=== PATIENT | female | born 1955 | race Caucasian/White ===

== ENCOUNTER 2019-06-13 01:40 | Day surgery (SDC) | payer MEDICARE, MEDICAID, SELFPAY ==
[2019-06-04 14:27] VITALS: BMI 27.5
[2019-06-13 08:49] VITALS: BP 128/74; PULSE 112; RESP 18; TEMP 36.2; O2SAT 98
--- NOTE | 2019-06-13 08:54 | WPDANESEPPF ---
Anes - Initial Pre Proc Eval Procedure: Operation Date: 06/13/19 10:00 Proposed Procedures p Screening Colonoscopy - Faizan Noel MD Date/Time: 06/13/19 08:54 Surgeon: Faizan Noel MD Pre Op Diagnosis: Fam Hx Colon Ca/ Personal Hx Colon Polyps Patient Data Age: 63 Gender: F Height: 1.52 m Weight: 61.6 kg Last Vital Signs Temp 36.2 C L 06/13/19 08:49 Pulse 112 H 06/13/19 08:49 Resp 18 06/13/19 08:49 BP 128/74 06/13/19 08:49 Pulse Ox 98 06/13/19 08:49 Allergies Allergy/AdvReac Type Severity Reaction Status Date / Time morphine Allergy Intermediate Swelling Verified 06/13/19 08:48 Home Medications Medication Instructions Recorded Confirmed Type ezetimibe 10 mg tablet 10 mg PO DAILY #60 tablet 03/19/19 06/04/19 Rx levothyroxine 100 mcg tablet 100 mcg PO DAILY #90 tablet 04/14/19 06/04/19 Rx cyclobenzaprine 10 mg tablet 10 mg PO TID PRN #30 tablet 05/26/19 06/04/19 Rx umeclidinium-vilanterol [Anoro 1 ea INHALATION DAILY 06/04/19 06/04/19 History Ellipta] Patient hx anesthesia problems: none Family hx anesthesia problems: none PMFSH Social History Social History Smoking packs per day: 2 Smoking cigarettes per day: 40.0 Smoking status: Current every day smoker Second hand tobacco smoke exposure: No Alcohol intake: never Anes - Eval Final PreProcedure Day of Procedure 06/13/19 08:54 Patient weight: overweight Heart: regular rate and rhythm Lungs: clear to auscultation and normal air movement Airway: Mallampati scale class II Neurological: alert and oriented Last oral intake: >/= 8 hours ASA classification: III Emergent: no Anesthetic plan: proceed Anesthesia type and monitoring: general GIVS Informed Consent: The patient's anesthetic plan and its attendant risks and benefits were discussed with the patient/family/POA. Questions were solicited and answers provided to the satisfaction of the patient/family/POA.
--- NOTE | 2019-06-13 08:58 | WPDANESEPPF ---
Anes - Initial Pre Proc Eval Procedure: Operation Date: 06/13/19 10:00 Proposed Procedures p Screening Colonoscopy - Faizan Noel MD Date/Time: 06/13/19 08:58 Surgeon: Faizan Noel MD Pre Op Diagnosis: Fam Hx Colon Ca/ Personal Hx Colon Polyps Patient Data Age: 63 Gender: F Height: 1.52 m Weight: 61.6 kg Last Vital Signs Temp 36.2 C L 06/13/19 08:49 Pulse 112 H 06/13/19 08:49 Resp 18 06/13/19 08:49 BP 128/74 06/13/19 08:49 Pulse Ox 98 06/13/19 08:49 Allergies Allergy/AdvReac Type Severity Reaction Status Date / Time morphine Allergy Intermediate Swelling Verified 06/13/19 08:48 Home Medications Medication Instructions Recorded Confirmed Type ezetimibe 10 mg tablet 10 mg PO DAILY #60 tablet 03/19/19 06/04/19 Rx levothyroxine 100 mcg tablet 100 mcg PO DAILY #90 tablet 04/14/19 06/04/19 Rx cyclobenzaprine 10 mg tablet 10 mg PO TID PRN #30 tablet 05/26/19 06/04/19 Rx umeclidinium-vilanterol [Anoro 1 ea INHALATION DAILY 06/04/19 06/04/19 History Ellipta] Patient hx anesthesia problems: none Family hx anesthesia problems: none PMFSH Past Medical History Medical History (Updated 06/13/19 @ 08:58 by Boston Ramos MD) Cervical disc disorder Compression fracture of T3 vertebra COPD (chronic obstructive pulmonary disease) Hyperlipidemia Hypothyroidism Thyroid cancer Tobacco abuse Torticollis, acute Surgical History Surgical History History of cholecystectomy History of hysterectomy History of thyroidectomy Social History Social History Smoking packs per day: 2 Smoking cigarettes per day: 40.0 Smoking status: Current every day smoker Second hand tobacco smoke exposure: No Alcohol intake: never Anes - Eval Final PreProcedure Day of Procedure 06/13/19 08:58 Patient weight: overweight Heart: regular rate and rhythm Lungs: clear to auscultation and normal air movement Airway: Mallampati scale class II Neurological: alert and oriented Last oral intake: >/= 8 hours ASA classification: III Emergent: no Anesthetic plan: proceed Anesthesia type and monitoring: general GIVS Informed Consent: The patient's anesthetic plan and its attendant risks and benefits were discussed with the patient/family/POA. Questions were solicited and answers provided to the satisfaction of the patient/family/POA.
[2019-06-13] MEDS: LACTATED RINGERS 1,000 ML 150 ML IV CONT (09:00)
--- NOTE | 2019-06-13 09:47 | P.HP_ITS ---
History of Present Illness History of Present Illness Consent: Risks, benefits, and alternatives have been discussed and questions answered. Patient agrees to proceed with procedure. Chief complaint: Fam Hx Colon Ca/ Personal Hx Colon Polyps Narrative: Yamini Lerner is a 63 year old female for colon cancer screening. She had adenomatous polyps removed 5 years ago [facility] Past Medical History Medical History Cervical disc disorder Compression fracture of T3 vertebra COPD (chronic obstructive pulmonary disease) Hyperlipidemia Hypothyroidism Thyroid cancer Tobacco abuse Torticollis, acute Surgical History Surgical History History of cholecystectomy History of hysterectomy History of thyroidectomy Family History Family History Grandparent Family history of malignant neoplasm of breast Family history of coronary artery disease Other Carcinoma of colon Cerebrovascular accident Diabetes mellitus Family history of cardiovascular disease Family history of malignant melanoma Family history of malignant neoplasm Hypertension Social History Social History Smoking packs per day: 2 Smoking cigarettes per day: 40.0 Smoking status: Current every day smoker Second hand tobacco smoke exposure: No Alcohol intake: never Meds Home Medications and Allergies Home Medications Medication Instructions Recorded Confirmed Type ezetimibe 10 mg tablet 10 mg PO DAILY #60 tablet 03/19/19 06/04/19 Rx levothyroxine 100 mcg tablet 100 mcg PO DAILY #90 tablet 04/14/19 06/04/19 Rx cyclobenzaprine 10 mg tablet 10 mg PO TID PRN #30 tablet 05/26/19 06/04/19 Rx umeclidinium-vilanterol [Anoro 1 ea INHALATION DAILY 06/04/19 06/04/19 History Ellipta] meloxicam 15 mg tablet 15 mg PO DAILY #30 tablet 06/13/19 Rx Allergies Allergy/AdvReac Type Severity Reaction Status Date / Time morphine Allergy Intermediate Swelling Verified 06/13/19 08:48 Vital Signs Vital Signs - 24 hr 06/13/19 08:49 Temperature 36.2 C L Pulse Rate 112 H Respiratory Rate 18 Blood Pressure 128/74 Pulse Oximetry 98 Exam Resp: Auscultation: clear to auscultation bilaterally Cardio: Rate: regular rate Rhythm: regular rhythm GI: GI Palp: Yes Soft to palpation and No Tenderness to palpation present (GI) Assessment and Plan Assessment and plan (1) Personal history of colonic polyps: Code(s): Z86.010 - Personal history of colonic polyps Status: Acute Assessment and Plan: Colonoscopy with possible biopsy or polypectomy or cautery or injection of substances.
[2019-06-13 10:15] VITALS: BP 87/54; PULSE 103; RESP 20; O2SAT 95
[2019-06-13 10:25] VITALS: BP 97/64; PULSE 100; RESP 20; O2SAT 96
[2019-06-13 10:35] VITALS: BP 103/51; PULSE 101; RESP 20; O2SAT 96
== END 2019-06-13 10:53 | disposition home or self-care (01) ==
PROVIDERS: PCP Family Medicine; Visit Provider Internal Medicine Gastroenterology
PROC: 0DJD8ZZ Inspection of Lower Intestinal Tract, Via Natural or Artificial Opening Endoscopic (ICD-10-PCS; CPT 45378; principal; 2019-06-13 10:00)
DX: Z12.11 Encounter for screening for malignant neoplasm of colon (principal); K63.5 Polyp of colon; K57.30 Diverticulosis of large intestine without perforation or abscess without bleeding; Z80.0 Family history of malignant neoplasm of digestive organs; F17.210 Nicotine dependence, cigarettes, uncomplicated
CPT/HCPCS: 45385; 88305; J2001; J2704; J7120

== ENCOUNTER 2019-11-26 12:43 | Outpatient (CLI) | payer MEDICARE, MEDICAID, SELFPAY ==
--- NOTE | ~2019-11-26 | CT_ITS ---
EXAMINATION: CT lung screening DATE: 11/26/2019 13:24 INDICATION: History of tobacco use. Tobacco dependence. TECHNIQUE: Computed tomography (CT) of the chest was performed without intravenous contrast. The dose -length product was 72.39 mGy-cm. Automated exposure control and iterative reconstruction technique w ere employed. COMPARISON: CT dated 08/02/2018 FINDINGS: Moderate emphysema. Heart size normal. No thoracic lymphadenopathy. No significant pleural or pericardial effusion. The upper abdomen is unremarkable. There are cholecystectomy clips. Stable 2 mm right lower lobe nodule. 3 mm left upper lobe nodule, image 27., Unchanged. There are a few addit ional small 2 mm upper lobe nodules. These are not significantly changed. Stable mild superior end pl ate compression deformity of T11. No acute osseous abnormality. IMPRESSION: 1. Lung-RADS category 2: Benign appearance or behavior. Continue annual screening with noncontrast lo w-dose chest CT in 12 months. Reviewed, dictated and finalized at location B. IMPRESSION: 1. Lung-RADS category 2: Benign appearance or behavior. Continue annual screeni ng with noncontrast low-dose chest CT in 12 months.
== END 2019-11-26 12:44 | disposition home or self-care (01) ==
PROVIDERS: PCP Family Medicine; Visit Provider Nurse Practitioner Family
DX: Z12.2 Encounter for screening for malignant neoplasm of respiratory organs (principal); Z87.891 Personal history of nicotine dependence
CPT/HCPCS: G0297

== ENCOUNTER 2020-02-05 06:36 | Outpatient (CLI) | payer MEDICARE, MEDICAID, SELFPAY ==
--- NOTE | ~2020-02-05 | MR_ITS ---
EXAMINATION: MR hand LT wo con DATE: 02/05/2020 08:23 INDICATION: Tendon rupture of left index finger. TECHNIQUE: Magnetic resonance imaging (MRI) of the left hand was performed without intravenous contra st. COMPARISON: None FINDINGS: Bone alignment is normal. No fracture. There is mild osteoarthritis of first and second met acarpophalangeal joints, third proximal interphalangeal joint, and second-fifth distal interphalangea l joints. There is moderate tendinopathy of flexor digitorum profundus and mild tendinopathy of flexo r digitorum superficialis of the second digit. No bowstringing to suggest sherry injury. The extensor tendons are normal. IMPRESSION: 1. Moderate tendinopathy of flexor digitorum profundus and mild tendinopathy of flexor digitorum supe rficialis of the second digit. Reviewed, dictated and finalized at location A. IMPRESSION: 1. Moderate tendinopathy of flexor digitorum profundus and mild tendinopathy of flexor digitorum superficialis of the second digit.
--- NOTE | ~2020-02-05 | MR_ITS ---
EXAMINATION: MR wrist LT wo con DATE: 02/05/2020 08:24 INDICATION: Tendon rupture of left index finger. TECHNIQUE: Magnetic resonance imaging (MRI) of the wrist was performed without intravenous contrast. Sequences performed include coronal T1-weighted FSE, coronal PD-weighted FS FSE, axial PD-weighted FS FSE, axial PD-weighted FSE, sagittal PD-weighted FSE, and sagittal PD-weighted FS FSE. COMPARISON: None FINDINGS: Intrinsic ligaments: The scapholunate and lunotriquetral ligaments are intact. Triangular fibrocartilage complex (TFCC): The triangular fibrocartilage is intact. Extensor wrist: The extensor tendons are normal. Flexor wrist: The flexor tendons are normal. Median nerve is normal. Guyon's canal: Ulnar nerve is normal. Bones/other: Bone alignment is normal. No fracture. There is mild osteoarthritis of distal radioulnar joint and ra dioscaphoid joint. There is patchy bone marrow edema in lunate, worst near the proximal articular anna face. There is mild osteoarthritis of triscaphe joint and moderate osteoarthritis of first carpometac arpal joint. IMPRESSION: 1. Patchy bone marrow edema in lunate with a proximal predominance, which may be secondary to osteone crosis, radiolunate osteoarthritis, or ulnolunate impaction syndrome. 2. Polyarticular osteoarthritis. Reviewed, dictated and finalized at location A. IMPRESSION: 1. Patchy bone marrow edema in lunate with a proximal predominance, which may b e secondary to osteonecrosis, radiolunate osteoarthritis, or ulnolunate impacti on syndrome. 2. Polyarticular osteoarthritis.
== END 2020-02-05 06:37 | disposition home or self-care (01) ==
PROVIDERS: PCP Family Medicine; Visit Provider Plastic Surgery
DX: S66.111A Strain of flexor muscle, fascia and tendon of left index finger at wrist and hand level, initial encounter (principal)
CPT/HCPCS: 73218; 73221

== ENCOUNTER 2020-03-26 14:45 | Outpatient (CLI) | payer MEDICARE, MEDICAID, SELFPAY ==
--- NOTE | ~2020-03-26 | MR_ITS ---
EXAMINATION: MR lumbar spine wo con DATE: 03/26/2020 16:01 INDICATION: Lumbar radiculopathy TECHNIQUE: Magnetic resonance imaging (MRI) of the lumbar spine was performed without intravenous con trast. Sequences included sagittal T2-weighted FSE, sagittal T2-weighted FS FSE, sagittal T1-weighted FSE, and axial T2-weighted FSE. COMPARISON: 02/07/2019 FINDINGS: Unchanged 3 mm retrolisthesis L4 on L5. Chronic mild anterior wedging at T12. Remaining vertebral bod y heights are normal. Interval progression of now severe disc height loss with similarly worsening fi brovascular degenerative endplate changes at L4-L5. Marrow signal is otherwise normal throughout. Unc hanged moderate disc height loss at L2-L3. Mild disc height loss at L3-L4. The conus medullaris termi nates at L1-L2. There is normal signal in the caudal spinal cord. Postoperative changes posterior to the lower lumbar spine with metallic magnetic field artifact corresponding to an interspinous process spacer device between L4 and L5 with partial resection of the inferior margin of the L4 spinous proc ess seen on radiograph dated 05/23/2019. 1.3 cm T2 hyperintense right renal cyst. The following disc levels are specifically discussed: T12-L1: The disc does not extend beyond the endplate margin. There is mild left and minimal right fac et joint osteoarthritis. There is no neural foraminal stenosis. There is no central canal stenosis. L1-L2: The disc does not extend beyond the endplate margin. There is mild bilateral facet joint osteo arthritis. There is no neural foraminal stenosis. There is no central canal stenosis. L2-L3: Disc is bulging with superimposed annular fissure and unchanged small left central disc extrus ion with disc material extending up to 10 mm cephalad to the level of the inferior endplate of L2. Th ere is hypertrophy of the ligamentum flavum. There is mild bilateral facet joint osteoarthritis. Ther e is mild bilateral neural foraminal stenosis. There is mild central canal stenosis. L3-L4: Disc is bulging. There is hypertrophy of the ligamentum flavum. There is severe right and mil d left facet joint osteoarthritis. There is mild bilateral neural foraminal stenosis. There is modera te central canal stenosis. L4-L5: Annular fissure and broad-based disc extrusion extending from foraminal zone to foraminal zone with disc material extending up to 7 mm inferior to the level of the L5 superior endplate margin. Th ere is moderate bilateral facet joint osteoarthritis. Progression of now moderate to severe bilateral neural foraminal stenosis. There appears to been posterior decompression with at least partial resec tion of the ligamentum flavum. There is mild central canal stenosis. L5-S1: Disc is mildly bulging. There is severe bilateral facet joint osteoarthritis. There is mild le ft and moderate right neural foraminal stenosis. There is mild central canal stenosis. IMPRESSION: 1. Continued progression of now severe spondylosis at L4-L5 with mild to moderate spondylosis in the remainder of the lumbar spine. 2. Likely posterior decompression at L4-L5 with interspinous process spacer device. Reviewed, dictated and finalized at location H. UET FLOOR LAYER IMPRESSION: 1. Continued progression of now severe spondylosis at L4-L5 with mild to modera te spondylosis in the remainder of the lumbar spine. 2. Likely posterior decompression at L4-L5 with interspinous process spacer dev ice.
== END 2020-03-26 14:46 | disposition home or self-care (01) ==
LOC: ANHIMG 14:50
PROVIDERS: PCP Family Medicine
DX: M47.26 Other spondylosis with radiculopathy, lumbar region (principal)
CPT/HCPCS: 72148

== ENCOUNTER 2020-07-23 11:44 | Outpatient (CLI) | payer MEDICARE, MEDICAID, SELFPAY | END 2020-07-23 11:45 | disposition home or self-care (01) | LOC: ANHCOVIDVC 11:45 | PROVIDERS: PCP Family Medicine | DX: Z23 Encounter for immunization (principal) | CPT/HCPCS: 0001A; 91300 ==

== ENCOUNTER 2020-08-13 11:40 | Outpatient (CLI) | payer MEDICARE, MEDICAID, SELFPAY | END 2020-08-13 11:41 | disposition home or self-care (01) | LOC: ANHCOVIDVC 11:40 | PROVIDERS: PCP Family Medicine | DX: Z23 Encounter for immunization (principal) | CPT/HCPCS: 0002A; 91300 ==

== ENCOUNTER 2020-11-22 13:52 | Outpatient (CLI) | payer MEDICARE, MEDICAID, SELFPAY ==
--- NOTE | ~2020-11-22 | MM_ITS ---
EXAMINATION: MM screening [facility] BI w tiana HISTORY: Screening mammogram TECHNIQUE: Craniocaudal and mediolateral oblique 3-D tomosynthesis images were obtained and synthetic 2-D images were generated. CAD analysis was submitted and interpreted. COMPARISON: 06/28/2018, 03/09/2017, 06/08/2014 BREAST PARENCHYMAL COMPOSITION: The breasts are almost entirely fatty. FINDINGS: There is no evidence of suspicious mass, calcification, or architectural distortion to sugg est malignancy in either breast. There has been no suspicious interval change. IMPRESSION: 1. No mammographic evidence of malignancy. 2. Recommend routine screening mammography in one year. BI-RADS Category 1: Negative Reviewed, dictated and finalized at location A.
--- NOTE | ~2020-11-22 | DEXA_ITS ---
Bone Density Report Name: Yamini Lerner Age: 65 Sex: Female Ethnicity: White Date of : 1955 Indication: osteopenia; cancer; asthma or emphysema; hysterectomy; postmenopausal Referring Provider: Marce Gupta Study: Bone densitometry was performed. Exam Date: November 22, 2020 Accession number: [id number] Bone Density: Region BMD T-score Z-score Classification AP Spine (L1, L2, L3) 0.741 -2.5 -0.8 Osteoporosis Femoral Neck (Left) 0.572 -2.5 -1.0 Osteoporosis Total Hip (Left) 0.648 -2.4 -1.2 Osteopenia Total Hip Bilateral Avg 0.644 -2.5 -1.3 Osteoporosis Femoral Neck (Right) 0.586 -2.4 -0.9 Osteopenia Total Hip (Right) 0.638 -2.5 -1.3 Osteoporosis World Health Organization criteria for BMD impression classify patients as: Normal (T-score at or above -1.0), Osteopenia (T-score between -1.0 and -2.5), or Osteoporosis (T-score at or below -2.5). 10-year Fracture Risk: FRAX not reported because: Some T-score for Spine Total or Hip Total or Femoral Neck at or below -2.5 Previous Exams: Region Exam Age BMD T-score BMD Change BMD Change Date g/cm2 vs Baseline vs Previous AP Spine(L1, L2, L3) 11/22/2020 65 0.741 -2.5 -0.064(-7.9%)* -0.064(-7.9%)* 06/08/2014 58 0.805 -1.9 Total Hip(Left) 11/22/2020 65 0.648 -2.4 -0.057(-8.1%)* -0.057(-8.1%)* 06/08/2014 58 0.704 -1.9 Total Hip(Right) 11/22/2020 65 0.638 -2.5 -0.105(-14.2%) -0.105(-14.2%) 06/08/2014 58 0.744 -1.6 *Denotes significance at 95% confidence level, LSC for AP Spine = 0.022 g/cm2, LSC for Total Hip = 0.027 g/cm2 Clinical Information Provided by Patient: Smokes Has the following medical conditions: Asthma or Emphysema, Cancer, Hysterectomy Patient maximum height was 60 Menopause Age: 37 Does not regularly consume dairy products Drinks caffeinated beverages Onset of menses at age 14 Number of children 1 Impression: The patient has osteoporosis, based on the Total Spine T-score. The patient has risk factors, including: smoking. The BMD for the AP Spine(L1, L2, L3) decreased, changing by -7.9% since the last DXA exam. The BMD for the Total Hip(Left) decreased, changing by -8.1% since the last DXA exam. The BMD for the Total Hip(Right) decreased, changing by -14.2% since the last DXA exam. Discussion: INCREASED RISK OF FRACTURE. BONE DENSITY IS UNDESIRABLY LOW AT ONE OR MORE SKELETAL SITES, CONSISTENT WITH POSTMENOPAUSAL OSTEOPOROSIS. This patient's lowest T-score meets the World H
== END 2020-11-22 13:53 | disposition home or self-care (01) ==
LOC: ANHIMG 13:56
PROVIDERS: PCP Family Medicine; Visit Provider Physician Assistant Medical
DX: Z12.31 Encounter for screening mammogram for malignant neoplasm of breast (principal); M81.0 Age-related osteoporosis without current pathological fracture; M85.852 Other specified disorders of bone density and structure, left thigh
CPT/HCPCS: 77063; 77067; 77080

== ENCOUNTER 2020-11-24 10:06 | Outpatient (CLI) | payer MEDICARE, MEDICAID, SELFPAY ==
--- NOTE | 2020-11-24 12:00 | NEURO_ITS ---
Impression: # Complains of numbness of hands. Status post C-spine surgery. # No Carpal Tunnel Syndrome. # Left ulnar neuropathy across the elbow. # Needle/EMG exam neurogenic in left 1st DI only. Nerve Conduction Studies Anti Sensory Summary Table Stim Site NR Peak (ms) P-T Amp (?V) Site1 Site2 Delta-P (ms) Dist (cm) Jude (m/s) Left Median Anti Sensory (2-3nd Digit) Wrist 3.2 72.9 Wrist 2-3nd Digit 3.2 14.0 44 Wrist 3.2 63.4 Wrist 2-3nd Digit 3.2 14.0 44 Left Radial Anti Sensory (Base 1st Digit) Wrist 1.6 28.0 Wrist Base 1st Digit 1.6 0.0 Left Ulnar Anti Sensory (5th Digit) Wrist 2.4 15.9 Wrist 5th Digit 2.4 14.0 58 Motor Summary Table Stim Site NR Onset (ms) O-P Amp (mV) Site1 Site2 Delta-0 (ms) Dist (cm) Jude (m/s) Left Median Motor (Abd Poll Brev) Wrist 4.1 2.8 Elbow Wrist 4.0 25.0 63 Elbow 8.1 2.9 Left Ulnar Motor (Abd Dig Minimi) Wrist 3.4 2.1 A Elbow Wrist 5.4 27.0 50 A Elbow 8.8 1.7 B Elbow Wrist 3.3 21.0 64 B Elbow 6.7 1.2 F Wave Studies NR F-Lat (ms) L-R F-Lat (ms) Left Median (Mrkrs) (Abd Poll Brev) 27.89 Left Ulnar (Mrkrs) (Abd Dig Min) 29.61 EMG Side Muscle Nerve Root Ins Act Fibs Amp Dur Recrt Comment Left 1stDorInt Ulnar C8-T1 Nml Nml Incr >12ms Reduced Left Ext Indicis Radial (Post Int) C7-8 Nml Nml Nml Nml Nml Left Ext Digitorum Radial (Post Int) C7-8 Nml Nml Nml Nml Nml Left BrachioRad Radial C5-6 Nml Nml Nml Nml Nml Left PronatorTeres Median C6-7 Nml Nml Nml Nml Nml Left Abd Poll Brev Median C8-T1 Nml Nml Nml Nml Nml Left Biceps Musculocut C5-6 Nml Nml Nml Nml Nml Left Triceps Radial C6-7-8 Nml Nml Nml Nml Nml Left Deltoid Axillary C5-6 Nml Nml Nml Nml Nml MTDD
== END 2020-11-24 10:07 | disposition home or self-care (01) ==
PROVIDERS: PCP Family Medicine; Visit Provider Plastic Surgery
DX: M62.542 Muscle wasting and atrophy, not elsewhere classified, left hand (principal); G56.22 Lesion of ulnar nerve, left upper limb
CPT/HCPCS: 95886; 95909

== ENCOUNTER 2021-04-29 09:45 | Outpatient (CLI) | payer MEDICARE, MEDICAID, SELFPAY ==
--- NOTE | ~2021-04-29 | CT_ITS ---
EXAMINATION: CT lung screening DATE: 04/29/2021 10:00 INDICATION: Personal history of nicotine dependence, current smoker with 50 pack year history TECHNIQUE: Computed tomography (CT) of the chest was performed without intravenous contrast. The dose -length product (DLP) was 81.58 mGy-cm. Automated exposure control and iterative reconstruction techn [employer] were employed. COMPARISON: 11/26/2019 FINDINGS: There is a stable 2 mm nodule of the right lower lobe. A stable 3 mm nodule is present in t he left upper lobe. There is mild emphysema. The lungs are free of acute opacities. There is no pleur al effusion or pneumothorax. There is mild atelectasis of the lingula. No pathologically enlarged tho racic lymph nodes are identified. The heart size is normal. The gallbladder is surgically absent. The re is severe mid thoracic spondylosis. IMPRESSION: 1. Lung-RADS category 2: Benign appearance or behavior. Continue annual screening with noncontrast lo w-dose chest CT in 12 months. Reviewed, dictated and finalized at location A. SUPERVISOR IMPRESSION: 1. Lung-RADS category 2: Benign appearance or behavior. Continue annual screeni ng with noncontrast low-dose chest CT in 12 months.
== END 2021-04-29 09:46 | disposition home or self-care (01) ==
LOC: ANHIMG 09:48
PROVIDERS: PCP Family Medicine; Visit Provider Nurse Practitioner Family
DX: Z87.891 Personal history of nicotine dependence (principal)
CPT/HCPCS: 71271

== ENCOUNTER 2021-05-01 07:55 | Emergency (ER) | payer MEDICARE, MEDICAID, SELFPAY ==
--- NOTE | ~2021-05-01 | XR_ITS ---
EXAMINATION: XR elbow LT min 3V DATE: 05/01/2021 09:53 INDICATION: Left elbow injury. TECHNIQUE: 4 views of left elbow were obtained. COMPARISON: None. FINDINGS: There is a displaced comminuted fracture of radial head and neck. One of the articular surf lashonda fracture fragments is rotated 180 degrees. There is mild elbow joint osteoarthritis. There is an elbow joint effusion. IMPRESSION: 1. Displaced comminuted fracture involving radial head and neck. 2. Mild elbow joint osteoarthritis. 3. Elbow joint effusion. Reviewed, dictated and finalized at location A. ISITIONS LIBRARIAN
--- NOTE | ~2021-05-01 | CT_ITS ---
EXAMINATION: CT elbow LT wo con DATE: 05/01/2021 11:19 INDICATION: Left elbow pain. Fracture. TECHNIQUE: Computed tomography (CT) of the left elbow was performed without intravenous contrast. Aut omated exposure control and iterative reconstruction technique were employed. The dose-length product was 356.87 mGy-cm. COMPARISON: Left elbow radiographs 05/01/2021 FINDINGS: Bone alignment is normal. There is a comminuted fracture involving head and neck of proxima l radius. The fracture fragments involving the articular surface are displaced and rotated. There is mild osteoarthritis of ulnohumeral joint. There is an elbow joint effusion. IMPRESSION: 1. Displaced comminuted fracture involving radial head and neck. 2. Mild ulnohumeral joint osteoarthritis. 3. Elbow joint effusion. Reviewed, dictated and finalized at location A. NHOUSE TECHNICIAN
[2021-05-01 08:20] VITALS: BP 137/84; PULSE 88; RESP 16; O2SAT 95
--- NOTE | 2021-05-01 10:03 | ED.UPPEXIN ---
HPI - Extremity Injury (Upper) General Chief Complaint: Extremity Injury, Upper Stated Complaint: fall with arm injury Time Seen by Provider: 05/01/21 08:03 Source: patient, family and RN notes reviewed Mode of arrival: ambulatory Limitations: no limitations History of Present Illness HPI narrative: Patient tripped while trying to put her pajamas on last night, positive alcohol, fell landed on the left elbow. Patient denies other injuries. Related Data Home Medications Medication Instructions Recorded Confirmed calcium [id number]-steelscope operator-arnu 1 tablet PO DAILY 01/03/21 02/28/21 [Calcium Citrate Plus] ibuprofen 200 mg PO Q6H 01/03/21 02/28/21 umeclidinium-vilanterol [Anoro 1 inh INHALATION DAILY 01/03/21 02/28/21 Ellipta] Allergies Allergy/AdvReac Type Severity Reaction Status Date / Time morphine Allergy Intermediate Swelling Verified 05/01/21 08:22 Review of Systems Review of Systems: CONSTITUTIONAL: Denies fever, chills, or sweats. EYES: Denies visual changes, redness, or discharge. ENT: Denies rhinorrhea, congestion, sore throat, or otalgia. CARDIOVASCULAR: Denies chest pain, palpitations, or edema. RESPIRATORY: Denies cough or dyspnea. GASTROINTESTINAL: Denies abdominal pain, nausea, vomiting, or diarrhea. GENITOURINARY: Denies dysuria or hematuria. SKIN: Denies rash or itching. MUSCULOSKELETAL: Denies back pain, joint pain, or myalgia. NEUROLOGIC: Denies headache, numbness, or weakness. PSYCHIATRIC: Denies anxiety or depression. [facility] Past Medical History Medical History BMI 26.0-26.9,adult BMI 27.0-27.9,adult Cervical disc disorder Compression fracture of T3 vertebra COPD (chronic obstructive pulmonary disease) Hyperlipidemia Hypothyroidism Thyroid cancer Tobacco abuse Torticollis, acute Surgical History Surgical History History of cholecystectomy History of hysterectomy History of thyroidectomy Family History Family History Grandparent Family history of malignant neoplasm of breast Family history of coronary artery disease Other Carcinoma of colon Cerebrovascular accident Diabetes mellitus Family history of cardiovascular disease Family history of malignant melanoma Family history of malignant neoplasm Hypertension Social History Social History Smoking packs per day: 1 Smoking cigarettes per day: 20.0 Years smoked: 50 Smoking pack-years: 50.00 Smoking status: Current every day smoker Tobacco type: cigarettes Second hand tobacco smoke exposure: No Alcohol intake: never Substance use: never Substance use type: does not use Spiritual care concerns: No Exam Narrative: General appearance: Well-developed, well-nourished Skin: Normal color Head: Normocephalic, nontraumatic Eyes: Clear conjunctiva ENT: Oropharynx normal, ears normal, nose normal Neck: Supple, nontender Chest and respiratory: Airway patent, no respiratory distress, no accessory muscle use Heart: Regular rate/rhythm Abdomen: Soft, nontender, no organomegaly, quiet bowel sounds Vascular: Normal peripheral pulses, normal capillary refill. Musculoskeletal: Left elbow showed diffuse swelling, diffuse tenderness, severe limited range of motion. Neurologic: Alert and oriented ?3, BANKING REPRESENTATIVE is normal as tested, no gross motor deficit Stable Course Course Emergency Course: Stable Consultations Consultation #1: DR WESTBROOK. Transfer patient to [facility] Date: 05/01/21 Time: 10:46 Consultation #2: DR BLOCK.
[2021-05-01] MEDS: IBUPROFEN 600 MG TABLET PO (10:26)
[2021-05-01] MEDS: HYDROcodone/acetaminophen (*CRX) 5-325 MG TABLET 1 TAB PO (10:26)
[2021-05-01 10:44] VITALS: BP 150/90; PULSE 90; RESP 16; O2SAT 96
[2021-05-01 11:36] VITALS: BP 126/78; PULSE 83; RESP 18; TEMP 36.9; O2SAT 93
== END 2021-05-01 12:15 | disposition home or self-care (01) ==
PROVIDERS: PCP Family Medicine
DX: S42.402A Unspecified fracture of lower end of left humerus, initial encounter for closed fracture (principal); J44.9 Chronic obstructive pulmonary disease, unspecified; E78.5 Hyperlipidemia, unspecified; E89.0 Postprocedural hypothyroidism; F17.210 Nicotine dependence, cigarettes, uncomplicated; W01.0XXA Fall on same level from slipping, tripping and stumbling without subsequent striking against object, initial encounter
CPT/HCPCS: 29105; 73080; 73200; 99284; A4565; A9270

== ENCOUNTER 2021-08-11 09:16 | Outpatient (CLI) | payer MEDICARE, MEDICAID, SELFPAY ==
--- NOTE | 2021-08-11 17:45 | WPDSIXMINUTE ---
Six Minute Walk Procedure Procedure Performed Pulmonary Stress Test (6 min walk) Six Minute Walk This is a 6 minute walk test. The test was performed and interpreted in accordance with the 2014 ERS/ATS task force guidelines. Findings: The patient's resting room air oxygen saturation measured by pulse oximetry was 96% and heart rate was 85 bpm. Patient ambulated for 457 meters and oxygen saturation remained 92 to 96%. Heart rate at the end of the study was 110 bpm. The patient did not qualify for supplemental oxygen at rest or with ambulation. There are no prior studies for comparison.
--- NOTE | 2021-08-11 17:46 | P.PCNPFT_ITS ---
PFT Procedure Performed PFT Procedure Performed Spirometry with Pre/Post Bronchodilator Plethysmography (Lung Vol) Diffusing Cap (DLCO) Flow Vol Loop PFT Interpretation This is a pulmonary function test with pre and post-bronchodilator spirometry, plethysmography and diffusing capacity. The test was performed and results interpreted in accordance with the 2019 and 2005 ATS/ERS Task Force guidelines respectively using the Global Lung Function Initiative-2012 reference equations. Patient demonstrated good effort and cooperation. Reproducibility criteria were met. The quality of the pre bronchodilator spirometry maneuver was Grade B and post bronchodilator spirometry maneuver was Grade B. Findings: Spirometry: There is decreased maximal expiratory airflow at all lung volumes with concave expiratory flow tracing. The contour the inspiratory flow tracing is normal. The pre bronchodilator FVC is 2.62 L, 100% predicted. The pre bronchodilator FEV1 is 1.41 L, 68% predicted. The pre bronchodilator FEV1: FVC ratio is 54%. The post bronchodilator FVC is 2.60 L, representing 1% decrease. The post bronchodilator FEV1 is 1.39 L, representing 1% decrease. The post bronchodilator FEV1: FVC ratio is 54%. Plethysmography: The total lung capacity is 4.54 L, 103% predicted. The functional residual capacity is 2.54 L, 102% predicted. The residual volume is 1.67 L, 90% predicted. Diffusing capacity: The diffusion capacity unadjusted for hemoglobin and carboxyhemoglobin is 13.1, 67% predicted. The diffusing capacity adjusted for alveolar volume is 3.36, 74% predicted. In comparison to previous pulmonary function test performed on 11/08/2016 the post bronchodilator FVC is unchanged from 2.76 L to 2.60 L. The post bronchodilator FEV1 is unchanged from 1.57 L to 1.39 L. The total lung capacity has decreased from 5.49 L to 4.54 L. The functional residual capacity is decreased from 3.39 L to 2.54 L. The residual volume has decreased from 2.94 L to 1.67 L. The diffusing capacity unadjusted for hemoglobin and carboxyhemoglobin is unchanged from 12.3 to 13.1. The diffusing capacity a djusted for alveolar volume is unchanged from 3.66 to 3.36. Impression: There is a moderate obstructive abnormality without significant improvement after inhaling a single dose of albuterol. The lung volumes are normal. The diffusing capacity is normal. When compared to prior pulmonary function test on 11/08/2016 there has been a greater than anticipated time dependent decrease in the total lung capacity, functional residual capacity and residual volume with no change in the FVC, FEV1 or DLCO. Clinical correlation is recommended. There are no prior studies for comparison
== END 2021-08-11 09:17 | disposition home or self-care (01) ==
LOC: ANHPFT 09:18
PROVIDERS: PCP Family Medicine; Visit Provider Nurse Practitioner Family
DX: J44.9 Chronic obstructive pulmonary disease, unspecified (principal); R06.02 Shortness of breath
CPT/HCPCS: 94060; 94618; 94726; 94729

== ENCOUNTER 2022-05-01 08:57 | Outpatient (CLI) | payer MEDICARE, MEDICAID, SELFPAY ==
--- NOTE | ~2022-05-01 | CT_ITS ---
EXAMINATION: CT lung screening DATE: 05/01/2022 09:14 INDICATION: Annual screening TECHNIQUE: Computed tomography (CT) of the chest was performed without intravenous contrast. Addition al 3D reconstructions utilizing coronal maximum intensity projection (MIP) were performed. Automated exposure control and iterative reconstruction technique were employed. The dose-length product was 10 2.49 mGy-cm. COMPARISON: 04/29/2021 FINDINGS: Mild emphysema. Unchanged 3 mm left upper lobe nodule on image 34 and 2 mm right lower lobe nodule on image 103. Interval increase in a small region of atelectasis/scarring at the lingula. No pneumonia, pulmonary edema or pleural effusion. Heart size normal. No pericardial effusion. Minimal atheroscler otic coronary artery calcification. Thoracic aorta is normal in caliber. No pathologically enlarged t horacic lymphadenopathy. Cholecystectomy clips the gallbladder fossa. Visual is upper abdomen is othe rwise unremarkable. C5-C6 disc replacement. Severe spondylosis at T8-T9. There are 11 paired rib-bear ing thoracic segments with chronic mild anterior wedging at T11. IMPRESSION: 1. Lung-RADS category 2: Benign appearance or behavior. Continue annual screening with noncontrast lo w-dose chest CT in 12 months. Reviewed, dictated and finalized at location B. ESSOR OF APOLOGETICS IMPRESSION: 1. Lung-RADS category 2: Benign appearance or behavior. Continue annual screeni ng with noncontrast low-dose chest CT in 12 months.
== END 2022-05-01 08:58 | disposition home or self-care (01) ==
PROVIDERS: PCP Family Medicine; Visit Provider Nurse Practitioner Family
DX: Z12.2 Encounter for screening for malignant neoplasm of respiratory organs (principal); Z87.891 Personal history of nicotine dependence
CPT/HCPCS: 71271

== ENCOUNTER 2022-08-15 08:02 | Outpatient (CLI) | payer MEDICARE, MEDICAID, SELFPAY ==
--- NOTE | ~2022-08-15 | XR_ITS ---
EXAMINATION: XR chest 2V Exam Date/Time: 08/15/2022 8:11 CDT HISTORY: Acute bronchitis x 2 wks,Lt sided spasms, hx of COPD Comparison: 03/08/2018, CT lung screening 05/01/2022. RESULT: Lines, tubes, and devices: Cholecystectomy clips. Lower cervical interbody device. Lungs and pleura: Emphysematous/senescent change. No focal consolidation, effusion, or pneumothorax. Lingular scar. Cardiomediastinal silhouette: Stable. Other: No acute osseous or upper abdominal finding. IMPRESSION: No acute cardiopulmonary process. Reviewed, dictated and finalized at location K.
== END 2022-08-15 08:03 | disposition home or self-care (01) ==
PROVIDERS: PCP Family Medicine; Visit Provider Physician Assistant Medical
DX: J20.9 Acute bronchitis, unspecified (principal)
CPT/HCPCS: 71046

== ENCOUNTER 2022-09-06 16:19 | Outpatient (CLI) | payer MEDICARE, MEDICAID, SELFPAY ==
--- NOTE | ~2022-09-06 | MM_ITS ---
EXAMINATION: MM screening ratna BI w tiana HISTORY: Screening mammogram TECHNIQUE: Craniocaudal and mediolateral oblique 3-D tomosynthesis images were obtained and synthetic 2-D images were generated. CAD analysis was submitted and interpreted. COMPARISON: 11/22/2020, 06/28/2018 and 03/09/2017 bilateral screening mammogram examinations BREAST PARENCHYMAL COMPOSITION: The breasts are almost entirely fatty. FINDINGS: There is no evidence of suspicious mass, calcification, or architectural distortion to sugg est malignancy in either breast. There has been no suspicious interval change. IMPRESSION: 1. No mammographic evidence of malignancy. 2. Recommend routine screening mammography in one year. BI-RADS Category 1: Negative Reviewed, dictated and finalized at location A.
== END 2022-09-06 16:20 | disposition home or self-care (01) ==
LOC: ANHIMG 16:21
PROVIDERS: PCP Family Medicine; Visit Provider Family Medicine
DX: Z12.31 Encounter for screening mammogram for malignant neoplasm of breast (principal)
CPT/HCPCS: 77063; 77067

== ENCOUNTER 2023-07-12 07:15 | Outpatient (CLI) | payer MEDICARE, MEDICAID, SELFPAY ==
--- NOTE | ~2023-07-12 | CT_ITS ---
EXAMINATION:CT lung screening DATE: 07/12/2023 07:30 INDICATION: Personal history of nicotine dependence. TECHNIQUE: Computed tomography (CT) of the chest was performed without intravenous contrast. Automate d exposure control and iterative reconstruction technique were employed. The dose-length product (DLP ) was 99.58 mGy-cm. COMPARISON: Chest CT 05/01/2022 FINDINGS: There is mild emphysema. There is mild scarring at the lung apices. There is mild atelectas is in the lingula. There are two 2 mm nodules in left upper lobe. No pleural effusion. The heart size is normal. There are coronary artery calcifications. No pericardial effusion. There are changes of c holecystectomy. There is severe cervical and thoracic spondylosis. There are changes of disc replacem ent in cervical spine. There is a chronic compression fracture of T12. IMPRESSION: 1. Lung-RADS category 2: Benign appearance or behavior. Continue annual screening with noncontrast lo w-dose chest CT in 12 months. Reviewed, dictated and finalized at location A. LOFT WORKER IMPRESSION: 1. Lung-RADS category 2: Benign appearance or behavior. Continue annual screeni ng with noncontrast low-dose chest CT in 12 months.
== END 2023-07-12 07:16 | disposition home or self-care (01) ==
PROVIDERS: PCP Family Medicine; Visit Provider Nurse Practitioner Family
DX: Z12.2 Encounter for screening for malignant neoplasm of respiratory organs (principal); Z87.891 Personal history of nicotine dependence
CPT/HCPCS: 71271

== ENCOUNTER 2023-08-01 14:55 | Outpatient (CLI) | payer MEDICARE, MEDICAID, SELFPAY ==
--- NOTE | ~2023-08-01 | US_ITS ---
Ultrasound of the neck/thyroid bed CLINICAL HISTORY: Abnormal blood chemistry findings FINDINGS: Patient is status post prior thyroidectomy. No abnormal mass lesion or lymphadenopathy seen in the region scanned/thyroid bed. IMPRESSION: Status post thyroidectomy. No abnormal mass lesion or lymphadenopathy seen. Reviewed, dictated and finalized at [facility].
== END 2023-08-01 14:56 | disposition home or self-care (01) ==
LOC: ANHIMG 14:57
PROVIDERS: PCP Family Medicine; Visit Provider Physician Assistant Medical
DX: C73 Malignant neoplasm of thyroid gland (principal); R79.89 Other specified abnormal findings of blood chemistry
CPT/HCPCS: 76536

== ENCOUNTER 2023-10-12 09:32 | Outpatient (CLI) | payer MEDICARE, MEDICAID, SELFPAY ==
--- NOTE | ~2023-10-12 | MM_ITS ---
EXAMINATION: MM screening ratna BI w tiana HISTORY: Screening TECHNIQUE: Craniocaudal and mediolateral oblique 3-D tomosynthesis images were obtained and synthetic 2-D images were generated. CAD analysis was submitted and interpreted. COMPARISON: Comparison to multiple prior studies sequentially, with oldest reviewed study dated 06/08. BREAST PARENCHYMAL COMPOSITION: There are scattered areas of fibroglandular density. FINDINGS: There is no evidence of suspicious mass, calcification, or architectural distortion to sugg est malignancy in either breast. There has been no suspicious interval change. IMPRESSION: 1. No mammographic evidence of malignancy. 2. Recommend routine screening mammography in one year. BI-RADS Category 1: Negative Reviewed, dictated and finalized at location B.
== END 2023-10-12 09:33 | disposition home or self-care (01) ==
LOC: ANHIMG 09:34
PROVIDERS: PCP Family Medicine; Visit Provider Family Medicine
DX: Z12.31 Encounter for screening mammogram for malignant neoplasm of breast (principal)
CPT/HCPCS: 77063; 77067

== ENCOUNTER 2023-12-18 09:27 | Outpatient (CLI) | payer MEDICARE, MEDICAID, SELFPAY ==
[2023-12-18 09:43] LABS: Basophils Absolute Auto 0.1 K/mm3 (0.0-0.1); Basophils Percent Auto 0.9 % (0.2-1.2); Eosinophils Absolute Auto 0.2 K/mm3 (0-0.3); Eosinophils Percent Auto 2.7 % (0-4.4); Hemoglobin 16.4 g/dL (12.0-15.0); Immature Granulocyte Absolute 0.02 K/mm3 (0.00-0.031); Immature Granulocyte Percent A 0.2 % (0-0.5); Lymphocytes Absolute Auto 2.33 K/mm3 (0.9-3.2); Lymphocytes Percent Auto 27.5 % (18.3-44.2); Mean Corpuscular HGB Conc 34.2 g/dl (32-36); Mean Corpuscular Volume 87.8 fl (80-100); Mean Platelet Volume 10.1 fl (7.4-10.4); Monocytes Absolute Auto 0.7 K/mm3 (0.1-0.6); Monocytes Percent Auto 7.8 % (2.6-8.5); Neutrophils Absolute Auto 5.2 K/mm3 (1.3-6.7); Neutrophils Percent Auto 60.9 % (45.5-73.1); Platelet Count Result 339 k/mm3 (150-375); Red Blood Count 5.47 M/mm3 (4.2-5.4); Red Cell Distribution Width 15.8 % (11.5-14.5); White Blood Count 8.5 K/mm3 (4.5-10.0)
[2023-12-18 09:48] LABS: Blood Urea Nitrogen 11 mg/dL (8-26); Carbon Dioxide 29 mmol/L (22-30); Chloride 99 mmol/L (98-109); Estimated Glomerular Filt Rate > 60; Glucose 111 mg/dL (70-105); Potassium 4.3 mmol/L (3.5-4.9); Sodium 136 mmol/L (138-146)
== END 2023-12-18 09:28 | disposition home or self-care (01) ==
LOC: ANHLAB 09:31
PROVIDERS: PCP Family Medicine; Visit Provider Internal Medicine Hematology & Oncology
DX: D75.1 Secondary polycythemia (principal)
CPT/HCPCS: 36415; 80047; 85025

== ENCOUNTER 2024-03-26 10:46 | Outpatient (CLI) | payer MEDICARE, MEDICAID, SELFPAY ==
--- NOTE | ~2024-03-26 | XR_ITS ---
3 VIEWS LUMBAR SPINE Ordering provider: Marce Gupta, [facility] History: . B/L LOW BACK PAIN NO INJURY . Comparison: None. FINDINGS: VERTEBRAL BODIES: No visible fracture or subluxation. Degenerative changes of the spine. Postoperative changes at the levels of L3, L4 and L5. DISK SPACES: Narrowing of the disc L2-L3 and L4-L5. SOFT TISSUES: Normal. IMPRESSION: No acute osseous abnormality lumbar spine. Multilevel degenerative disc disease. Reviewed, dictated and finalized at location A. NEER BYPRODUCT
== END 2024-03-26 10:47 | disposition home or self-care (01) ==
PROVIDERS: PCP Family Medicine; Visit Provider Physician Assistant Medical
DX: M54.50 Low back pain, unspecified (principal); G89.29 Other chronic pain; R29.898 Other symptoms and signs involving the musculoskeletal system; M51.369 Other intervertebral disc degeneration, lumbar region without mention of lumbar back pain or lower extremity pain
CPT/HCPCS: 72100

== ENCOUNTER 2024-04-16 14:07 | Outpatient (RCR) | payer MEDICARE, MEDICAID, SELFPAY ==
--- NOTE | 2024-04-16 15:28 | OPREHPOC ---
Outpatient Therapy Plan of Care This is a Multidisciplinary Plan of Care that may contain components documented by all disciplines (PT, OT, and ST.) PT Problem 1 PT Problem #1 Knowledge Deficit PT Goal 1 Goal / Goal Update *indep with HEP Target Visit 6 PT Goal 2 Goal / Goal Update *demonstrate correct body mechanics with lifting from the floor Target Visit 6 PT Problem 2 PT Problem #2 Pain PT Goal 1 Goal / Goal Update * pt report pain rating at worst of 4/10 Target Visit 6 PT Goal 2 Goal / Goal Update * pt report with sleeping, awaken 1x/night due to pain Target Visit 6 PT Problem 3 PT Problem #3 Impaired Strength PT Goal 1 Goal / Goal Update *increase LE and trunk strength, to improve posture and stability to spine: single leg standing R and L x 20 seconds with good stability Target Visit 6 PT Goal 2 Goal / Goal Update * improve hip abduction strength to improve walking and stability to spine: perform 20 reps of side lying hip abduction R and L Target Visit 6 PT Problem 4 PT Problem #4 Impaired Functional Mobility PT Goal 1 Goal / Goal Update * pt ambulate 550' with 2 minute walking test and pain of 4/10, and no report of legs weak Target Visit 6
--- NOTE | 2024-04-16 15:28 | PTOPEVAL1 ---
Assessment and note entered by Keara Landon, PT Evaluation Information Assessment Status Evaluation ICD-10 Condition Codes (PT) Pain in low back M54.50 Other ICD-10 Condition Codes ( G89.29 chronic pain PT) Onset October 2023 Subjective Information chronic low back pain; noticed not able to walk as much about 6 months ago--legs weaker and feel really heavy, dragging them with walking; recent lumbar xray PMHx: R leg has PAD with history of R ankle fracture/casted; 2 lumbar & 1 cervical surgeries activity: walking tolerance about 10 minutes; indep with all in home and self care tasks; Goal: get strength back in her legs; feel better Reported Pain Level Pain Score 3: Self Report Additional Pain Score Comments pain range in the past week 3-10/21; legs weak and heavy- no numbness or tingling in legs; R and L lumbar and lateral hips; spasms over thoracic area and trunk; increase pain: sit 10 minutes; decrease pain: change positions, heat, ice, advil is not taking any prescription pain meds; walking does not hurt her back, but legs weak and limit her walking to about 10 minutes sleeping- pain in hips increase with changing positions, 2x/night Assessment PT Clinical Summary Yamini has the diagnosis of low back pain and chronic pain. She reports decrease leg strength and walking ability over the past 6 months. Self assessment with Oswestry back rating of 60%. Sitting and sleeping are disrupted due to pain in her back. PMHx: 2 lumbar surgeries, 1 cervical surgery, PAD R ankle, chronic neck and back pain; With the evaluation: pain is increased with standing trunk extension, supine bridge and supine L hip IR motions; weakness of trunk and hips with mat exercises and single leg standing; 2 minute walking test distance of 500' with increase pain in back to 6/ 10 and SOB. Skilled PT services are indicated for modalities to decrease back pain, therapeutic exercises to increase LE and trunk strength with education for HEP and body mechanics/posture education. Plan of Care Interventions Electrical Stimulation,Hot Pack/Cold Pack,Manual Therapy,Mechanical Traction,Patient Education,Therapeutic Activities,Therapeutic Exercise,Ultrasound,Other PT Services Indicated Yes Treatment Frequency and 1-2x/wk for 6 visits Duration These treatments will address the objective and functional deficits as defined above. The patient will be advanced safely and appropriately in order for the patient to progress towards his/her prior level of function. Additional exercises will be introduced and as well as a comprehensive home exercise program upon discharge, if needed, ?to ensure carryover of functional gains achieved in the clinic. This treatment plan has been reviewed and agreement upon by the patient.
--- NOTE | 2024-04-24 08:24 | PCPTNOTE ---
Pt. was unable to attend her PT appointment this date due to being sick.
--- NOTE | 2024-05-15 14:19 | PCPTNOTE ---
No call , no show. Called and left mssg to call us if she no longer needs our services on 05-22-24. JACKYS
--- NOTE | 2024-05-22 11:10 | PTOPDC ---
Assessment and note entered by Keara Landon, PT Assessment Status Discharge - Pt Not Present ICD-10 Condition Codes (PT) Pain in low back M54.50 Other ICD-10 Condition Codes ( G89.29 chronic pain PT) Onset October 2023 Subjective Information pt called on May 16 and canceled PT due to feeling better. Assessment PT Clinical Summary Yamini received the PT evaluation on April 16. She called/canceled 1 and did not show for 1 appointment. Then called and canceled therapy due to feeling better. Discharge PT. The goals were not addressed. Plan of Care PT Services Indicated No
== END 2024-05-22 17:49 | disposition home or self-care (01) ==
LOC: ANHPT 14:07
PROVIDERS: PCP Family Medicine; Visit Provider Physician Assistant Medical
DX: M54.50 Low back pain, unspecified (principal); G89.29 Other chronic pain; R29.898 Other symptoms and signs involving the musculoskeletal system
CPT/HCPCS: 97110; 97161; 97530

== ENCOUNTER 2024-08-12 08:37 | Outpatient (CLI) | payer MEDICARE, MEDICAID, SELFPAY ==
--- NOTE | ~2024-08-12 | CT_ITS ---
Clinical Indication: Lung cancer screening CT Scan of the Chest with Contrast: Technique: Contiguous sections were acquired throughout the chest after intravenous administration of 75 cc of Omnipaque 350. Dose reduction technique was used on this scan by utilizing automated exposu re control and iterative reconstruction technique. The dose-length product (DLP) was 179.33 mGy-cm. COMPARISON: 07/12/2023 Findings: There is no evidence of any significant mediastinal, hilar or axillary lymphadenopathy. There is no f illing defect in the pulmonary arterial tree to suggest pulmonary embolus. There is no evidence of ao rtic dissection or aneurysm. There is no evidence of pleural or pericardial effusion. The lungs are clear. No pulmonary nodules or infiltrates are noted. Moderate emphysema. Images through the upper abdomen reveal no abnormalities. Impression: Clear lungs. Moderate emphysema. Reviewed, dictated and finalized at [facility]. Impression: Clear lungs. Moderate emphysema.
--- OUTSIDE RECORDS SUMMARY | 2024-08-12 08:54 | XMS_ITS | Clinical Summary ---
Author Organization [facility] Elaine lockhart [place] Address [address] [place] [address] Care Team Providers Care Environmental Protection Specialist Name Role Phone Robert Ashraf MD Primary Care Provider [phone] Allergies Active Allergy Reactions Criticality Noted Date Comments Morphine Rash,Swelling Low 12/16/2020 Medications levothyroxine 100 mcg tablet Take 125 mcg by mouth daily in the morning. Active DULoxetine (CYMBALTA) 60 mg Capsule, Delayed Release(E.C.) Take 60 mg by mouth daily. Active pravastatin (PRAVACHOL) 10 mg tablet Take 20 mg by mouth daily with supper. Active umeclidinium brm/vilanterol tr (ANORO ELLIPTA INHALATION) Take by inhalation. Active ibandronate (BONIVA) 150 mg tablet Take 150 mg by mouth every 30 days. Active ibuprofen (MOTRIN) 100 mg Tablet Take by mouth. Active Active Problems Problem Noted Date Diagnosed Date Erythrocytosis 12/16/2020 Encounters Date Type Department Care Team Description 07/30/2024 External Device Data STL ABSTRACTION Provider, Abstract 07/19/2024 External Device Data STL ABSTRACTION Provider, Abstract 07/18/2024 External Device Data STL ABSTRACTION Provider, Abstract 07/16/2024 External Device Data STL ABSTRACTION Provider, Abstract 07/15/2024 External Device Data STL ABSTRACTION Provider, Abstract 07/01/2024 External Device Data STL ABSTRACTION Provider, Abstract 06/04/2024 External Device Data STL ABSTRACTION Provider, Abstract 06/03/2024 External Device Data STL ABSTRACTION Provider, Abstract 05/27/2024 External Device Data STL ABSTRACTION Provider, Abstract from Last 3 Months Family History Medical History Relation Name Comments Heart Disease Brother 1 Diabetes Brother 2 Cancer Mother Cancer Sister 2 Diabetes Sister 2 Heart Disease Sister 2 Cancer Son Relation Name Status Comments Brother 1 Alive Brother 2 Alive Brother 3 Alive Father Mother Sister 1 Alive Sister 2 Alive Sister 3 Alive Son Alive Social History Tobacco Use Types Packs/Day Years Used Date Smoking Tobacco: Every Day Cigarettes 1 60 Smokeless Tobacco: Never Tobacco Cessation:Ready to Q uit: Not Asked; Counseling Given: Not Answered Alcohol Use Standard Drinks/Week Comments Yes 0 (1 standard drink = 0.6 oz pure alcohol) 2-3 times a week 6-12pack each day Comments No Sex and Gender Information Value Date Recorded Sex Assigned at Not on file Legal Sex Female 10:59 AM CDT Gender Identity Not on file Sexual Orientation Not on file Last Filed Vital Signs Vital Sign Reading Time Taken Comments Blood Pressure 124/79 12/18/2023 9:54 AM CDT Pulse 90 12/18/2023 9:54 AM CDT Temperature 36.6 C (97.8 F) 12/18/2023 9:54 AM CDT Respiratory Rate 18 12/18/2023 9:54 AM CDT Oxygen Saturation 93% 12/18/2023 9:54 AM CDT Inhaled Oxygen Concentration - - Weight 61.7 kg (136 lb) 12/18/2023 9:54 AM CDT Height 152.4 cm (5') 01/04/2022 11:38 AM CDT Body Mass Index 26.56 01/04/2022 11:38 AM CDT Plan of Treatment Upcoming Encounters Date Type Department Care Team (Late st Contact Info) Description 08/19/2024 10:15 AM CDT Office Visit [facility] [place] [address] [facility] [address] [place] [address] Miguel Gomez MD [address] [place] [address] Health Maintenance Due Date Last Done Comments Pre-Diabetes and Diabetes Screening 1955 DTAP/TDAP/TD VACCINES (1 - Tdap) 09/19/1975 PNEUMOCOCCAL VACCINE 50+ YEA RS (1 of 2 - PCV) 09/19/1975 FIT-DNA Q 3 years 2001 FIT/FOBT Q 1 year 2001 Flex Sig/CT Colonography Q 5 years 2001 Lung Cancer Screening 2006 ZOSTER VACCINE (1 of 2) 2006 INFLUENZA VACCINE (#1) 2023 BREAST CANCER SCREENING 10/11/2024 10/12/19 24, 10/12/2023, 09/06/2022, Additional history exists COLORECTAL SCREENING 06/13/2029 06/13/2019 Colorectal Cancer Screening 06/13/2029 RSV VACCINE (60+ or ) (1 - 1-dose 75+ series) 09/19/2031 OSTEOPOROSIS SCREENING Completed 11/22/2020 Insurance MEDICAID [place] MEDICARE PART A AND B Care Teams Environmental Protection Specialist Relationship Specialty Start Date End Date Robert Ashraf MD [address] [place] [address] PCP - General Family Practice 12/16/20
--- OUTSIDE RECORDS SUMMARY | 2024-08-12 08:54 | XMS_ITS | Clinical Summary ---
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 Gender Identity Not on file Sexual Orientation Not on file Plan of Treatment Health Maintenance Due Date Last Done Comments Colorectal Cancer Screening Colonoscopy (10 Years) 1955 Hepatitis C 1974 DTaP, Tdap and Td Vaccines ( 1 - Tdap) 09/19/1975 Mammogram Screening 1996 Zoster Vaccines (1 of 2) 2006 Annual Medicare Wellness Visit 2021 Dexa Scan (General) 2021 Pneumococcal Vaccine: 65+ Ye ars (1 of 1 - PCV) 2021 COVID-19 Vaccine ( - 2023-2 5 season) 2024 RSV Immunization or 60+ Years (1 - 1-dose 75+ series) 09/19/2031 Meningococcal B Vaccine Aged Out No l onger eligible based on patient's age to complete this topic Meningococcal Vaccine Aged Out No karis surya eligible based on patient's age to complete this topic RSV Immunizations Under 20 Months Aged Out No longer eligible based on patient's age to complete this topic Insurance MEDICARE MEDICAID Care Teams Enrollment Clerk Relationship Specialty Start Date End Date Robert Asharf MD [address] [address] PCP - General FAMILY PRACTICE 06/26/19
--- OUTSIDE RECORDS SUMMARY | 2024-08-12 08:54 | XMS_ITS | Clinical Summary ---
Author Organization [facility] Address [address] [place] [address] Care Team Providers Care Utility Specialist Name Role Phone Robert Ashraf MD Primary Care Provider [phone] Source Comments [facility],non-owned Affiliates and Associated Physician Practices is amultiple site organization consisting of ambulatory clinics and hospital sitesin [place], [place], [place] and [place]. This disclosure is being madepursuant to the Care Everywhere program and may not contain all information available regarding this patient. Last updated 18.[facility] Allergies Active Allergy Reactions Criticality Noted Date Comments Morphine Angioedema High 06/12/2018 Whole body and face swelled and itching, occurred while in hospital, med's given no artificial airway needed Medications * Be aware that medications may not be up to date on this document. Alwaysverify current medications with the patient. Medication Sig Dispensed Refills Start Date End Date Status ANORO ELLIPTA 62.5-25 MCG/INH inhaler Inhale 1 puff by mouth once daily 6 03/16/2019 Active levothyroxine (SYNTHROID) 100 MCG tablet Take 100 mcg by mouth once daily 06/02/2020 Active pravastatin (PRAVACHOL) 10 MG tablet Take 10 mg by mouth once daily Active DULoxetine (CYMBALTA) 60 MG capsule Take 1 capsule by mouth once daily 12/27/2020 Active ibandronate (BONIVA) 150 MG tablet 05/10/2021 Active Ibuprofen 100 MG Active HYDROcodone-acetamino phen (NORCO) 5-325 MG tablet Take 2 (two) tablets by mouth every 6 hours as needed for Pain 40 tablet 05/16/2021 Active Active Problems Problem Noted Date Diagnosed Date At risk for difficult intuba tion on preoperative anesthesia assessment 05/11/2021 History of lumbar laminectomy 07/01/2020 Insomnia 10/08/2019 Pain in joint, lower leg 10/08/2019 Lumbar degenerative disc disease 04/29/2019 Dietary counseling and surveillance 05/29/2012 Pain in joint, multiple sites Closed displaced fracture of head of left radius Elbow pain, left Acute post-operative pain Immunizations Name Administration Dates Next Due Covid Moderna primary monovalent 12+ yr 0.5mL ,07/23/2020 INFLUENZA VACCINE 03/08/2020,02/25/2018 Family History Medical History Relation Name Comments Cancer - Other Brother Diabetes - Type 2 Brother Parkinson's Disease Father Cancer - Other Mother CAD (Coronary Artery Disease) Sister Relation Name Status Comments Brother Father Mother Sister Social History Tobacco Use Types Packs/Day Years Used Date Smoking Tobacco: Every Day Cigarettes 1 50 Smokeless Tobacco: Never Tobacco Cessation:Ready to Q uit: No; Counseling Given: Yes Comments:down to less than 1ppd Alcohol Use Standard Drinks/Week Comments Not Currently 0 (1 standard drink = 0.6 oz pur e alcohol) occ. means once a week AUDIT-C Answer Date Recorded Q1: How often do you have a drink containing alc ohol? Never 05/16/2021 Average Number of Drinks Not on file 022 Q3: How often do you have si x or more drinks on one occasion? Never 05/16/2021 Sex and Gender Information Value Date Recorded Sex Assigned at Not on file Gender Identity Not on file Sexual Orientation Not on file Last Filed Vital Signs Vital Sign Reading Time Taken Comments Blood Pressure 118/75 05/16/2021 1:30 PM UTILITY TECH Pulse 90 05/16/2021 1:30 PM UTILITY TECH Temperature 36.8 C (98.3 F) 05/16/2021 1:00 PM UTILITY TECH Respiratory Rate 15 05/16/2021 1:30 PM UTILITY TECH Oxygen Saturation 90% 05/16/2021 1:30 PM UTILITY TECH Inhaled Oxygen Concentration 21% 10/15/2019 1 2:25 PM CDT Weight 66.7 kg (147 lb) 05/18/2021 12:34 PM UTILITY TECH Height 152.4 cm (5') 05/16/2021 8:25 AM UTILITY TECH Body Mass Index 28.71 05/16/2021 8:25 AM UTILITY TECH Plan of Treatment Health Maintenance Due Date Last Done Comments BONE DENSITY TESTING 1955 COLOGUARD (AGES 45-75) - COLON CA SCREENING [address] COLONOGRAP[address] - COLON CA SCREENING 1955 FIT - COLON CA SCREENING 1955 FLEX SIG - COLON CA SCREENING 1955 MEDICARE AWV 12 MONTHS 1955 HEPATITIS C SCREENING 09/14/1974 DTAP/TDAP/TD VACCINES (1 - Tdap) 09/19/1975 LUNG CANCER SCREENING 2006 PNEUMOCOCCAL VACCINE 50+ (1 of 1 - PCV) 2006 ZOSTER VACCINE (1 of 2) 2006 MAMMOGRAM 03/09/2019 03/09/2017 COVID-19 VACCINE ( - season) 2024 08/13/2020, 07/23/2020 INFLUENZA VACCINE (#1) 2024 03/08/2020, 2017 SCREENING FOR DIABETES 05/11/2024 , 06/17/2020, 06/14/2020, Additional history exists DEPRESSION SCREENING 05/14/2024 COLONOSCOPY - COLON CA SCREENING 06/16/2024 06/16/2014 Colorectal Cancer Screening 06/16/2024 Respiratory Syncytial Virus (RSV) Vaccine Pt: or over 60 yrs (1 - 1-dose 75+ series) 09/19/2031 HEPATITIS B VACCINE Aged Out No longe r eligible based on patient's age to complete this topic HIB VACCINE Aged Out No longer eligi ble based on patient's age to complete this topic HPV VACCINE Aged Out No longer eligi ble based on patient's age to complete this topic MENINGOCOCCAL (Group B) VACCINE SHARED DECISION-MAKING Aged Out No longer eligible based on patient's age to complete this topic MENINGOCOCCAL GROUPS A/C/Y/W VACCINE Aged Out No longer eligible based on patient's age to complete this topic Medical Devices Implanted Type Area Driver Merchandiser Device Identifier Shelf Expiration Date Model / Serial / Lot Orthofix M6 Artificial Cervical Disc Implanted:Qty: 1 on 10/15/2019 by Dolores Adamson MD at [facility] N/A: Spine Cervical 05/15/2024 CDL-637L / [id number] / [id number] Nushield 4 X 4cm Implanted:Qty: 1 on 06/16/2020 by Margaret De La Rosa MD at [facility] N/A: Back 09/07/2024 NO-1440 / / [id number] Description:Graft Tissue Head Radl 12mm 22mm Explor Thu Garcia Implanted:Qty: 1 on 05/16/2021 by Sourav Dougals MD at [facility] Left: Radius [employer] 05/30/2029 / / [id number] Stem Radl 26mm 7mm Explor Thu Garcia Implanted:Qty: 1 on 05/16/2021 by Sourav Douglas MD at [facility] Left: Radius [employer] 10/06/2030 / / [id number] Description:apart of total Procedures Procedure Name Priority Date/Time Associated Diagnosis Comments BASIC METABOLIC PANEL (CALCIUM TOTAL) Routine 05/11/2021 2:34 PM UTILITY TECH Adjustment insomnia from Last 3 Months or Most Recently Relevant to Health Maintenance Results * BASIC METABOLIC PANEL (CALCIUM TOTAL) (05/11/2021 2:34 PM UTILITY TECH) BUN 10 7 - 26 mg/dL 05/11/2021 3:19 PM [facility] Creatinine 0.61 0.56 - 0.96 mg/dL 05/11/2021 3:19 PM [facility] Sodium 137 136 - 145 mmol/L 05/11/2021 3:19 PM [facility] Potassium 3.9 3.5 - 4.5 mmol/L 05/11/2021 3:19 PM [facility] Chloride 102 98 - 107 mmol/L 05/11/2021 3:19 PM [facility] CO2 25 22 - 29 mmol/L 05/11/2021 3:19 PM [facility] Glucose 93 70 - 115 mg/dL 05/11/2021 3:19 PM [facility] Calcium 9.3 8.4 - 10.2 mg/dL 05/11/2021 3:19 PM [facility] Anion Gap 14 8 - 18 05/11/2021 3:19 PM [facility] BUN/Creatinine Ratio 16 7 - 23 05/11/2021 3:19 PM [facility] Osmolality Calculated 283 270 - 300 mOsm/kg 05/11/2021 3:19 PM [facility] eGFR by CKD-EPI >90 >=90 mL/min/1.7 3 m2 05/11/2021 3:19 PM [facility] Blood BLOOD SPECIMEN / Unknown Lab Venipuncture / Unknown 05/11/2021 2:34 PM UTILITY TECH 05/11/2021 2:54 PM [facility] - [facility]Y [facility] [address] [place] [address] [phone] from Last 3 Months or Most Recently Relevant to Health Maintenance Advance Directives * Full Code (Latest Code Status on File) Date Activated Date Inactivated Comments 06/16/2020 12:56 PM 06/17/2020 2:49 PM * Full Code Date Activated Date Inactivated Comments 06/12/2018 9:43 AM 06/12/2018 4:30 PM Care Teams Utility Specialist Relationship Specialty Start Date End Date Robert Ashraf MD [address] [place] [address] PCP - General 06/23/14
[2024-08-12 09:15] LABS: Estimated Glomerular Filt Rate > 60
== END 2024-08-12 08:38 | disposition home or self-care (01) ==
PROVIDERS: PCP Family Medicine; Visit Provider Internal Medicine Hematology & Oncology
DX: Z12.2 Encounter for screening for malignant neoplasm of respiratory organs (principal); J43.9 Emphysema, unspecified
CPT/HCPCS: 71260; Q9967

== ENCOUNTER 2024-08-19 09:29 | Outpatient (CLI) | payer MEDICARE, MEDICAID, SELFPAY ==
[2024-08-19 09:49] LABS: Basophils Absolute Auto 0.1 K/mm3 (0.0-0.1); Basophils Percent Auto 1.1 % (0.2-1.2); Eosinophils Absolute Auto 0.2 K/mm3 (0-0.3); Eosinophils Percent Auto 2.6 % (0-4.4); Hematocrit 47.3 % (37.0-47.0); Hemoglobin 16.2 g/dL (12.0-15.0); Immature Granulocyte Absolute 0.02 K/mm3 (0.00-0.031); Immature Granulocyte Percent A 0.2 % (0-0.5); Lymphocytes Absolute Auto 2.25 K/mm3 (0.9-3.2); Lymphocytes Percent Auto 27.9 % (18.3-44.2); Mean Corpuscular HGB Conc 34.2 g/dl (32-36); Mean Corpuscular Hemoglobin 30.9 pg (26-34); Mean Corpuscular Volume 90.1 fl (80-100); Mean Platelet Volume 9.7 fl (7.4-10.4); Monocytes Absolute Auto 0.6 K/mm3 (0.1-0.6); Monocytes Percent Auto 7.6 % (2.6-8.5); Neutrophils Absolute Auto 4.9 K/mm3 (1.3-6.7); Neutrophils Percent Auto 60.6 % (45.5-73.1); Platelet Count Result 379 k/mm3 (150-375); Red Blood Count 5.25 M/mm3 (4.2-5.4); Red Cell Distribution Width 15.3 % (11.5-14.5); White Blood Count 8.1 K/mm3 (4.5-10.0)
[2024-08-19 09:51] LABS: Blood Urea Nitrogen 6 mg/dL (8-26); Carbon Dioxide 28 mmol/L (22-30); Chloride 98 mmol/L (98-109); Estimated Glomerular Filt Rate > 60; Glucose 93 mg/dL (70-105); Ionized Calcium (POC) 1.14 mmol/L (1.11-1.31); Potassium 4.6 mmol/L (3.5-4.9); Sodium 134 mmol/L (138-146)
--- OUTSIDE RECORDS SUMMARY | 2024-08-19 10:21 | XMS_ITS | Encounter Summary ---
Author Organization [facility])[3] [facility] Address [address] [place] [address] Care Team Providers Care Facility Coordinator Name Role Phone Robert Ashraf MD Primary Care Provider [phone] Encounter Details Date Type Department Care Team (Late st Contact Info) Description 08/19/2024 10:15 AM CDT Office Visit [facility] Oncology and Hematology - Vishnu [address] [facility] [place] [address] [place] [address] Miguel Gomez MD [address] [place] [address] Erythrocytosis (Primary Dx) Social History Tobacco Use Types Packs/Day Years [...] on file Sexual Orientation Not on file documented as of this encounter Last Filed Vital Signs Vital Sign Reading Time Taken Comments Blood Pressure 131/91 08/19/2024 9:56 AM CDT Pulse 85 08/19/2024 9:54 AM CDT Temperature 35.8 C (96.4 F) 08/19/2024 9:54 AM CDT Respiratory Rate 15 08/19/2024 9:54 AM CDT Oxygen Saturation 92% 08/19/2024 9:54 AM CDT Inhaled Oxygen Concentration - - Weight 60.2 kg (132 lb 12.8 oz) 08/19/2024 9:54 AM CDT Height - - Body Mass Index 25.94 01/04/2022 11:38 AM CDT documented in this encounter Plan of Treatment Scheduled Orders Name Type Priority Associated Diagnoses Orde r Schedule CBC WITHOUT DIFFERENTIAL Lab Stat Erythrocytosis Expected: 02/18/2025, Expires: 08/19/2025 BASIC METABOLIC PANEL Lab Stat Erythrocytosis Expected: 02/18/2025, Expires: 08/19/2025 documented as of this encounter Visit Diagnoses Diagnosis Erythrocytosis- Primary Reserved for inherently not codable concepts WITHOUT codable children documented in this encounter Care Teams Facility Coordinator Relationship Specialty Start Date End Date Robert Ashraf MD [address] [place] [address] PCP - General Family Practice 12/16/20 documented as of this encounter
--- OUTSIDE RECORDS SUMMARY | 2024-08-19 10:21 | XMS_ITS | Clinical Summary ---
Author Organization [facility] Address [address] [place] [address] Care Team Providers Care Slitting Machine Operator Helper Name Role Phone Robert Ashraf MD Primary Care Provider [phone] Source Comments [facility],non-owned Affiliates and Associated Physician Practices is amultiple site organization consisting of ambulatory clinics and hospital sitesin [place], [place], [place] and [place]. This disclosure is being madepursuant to the Care Everywhere program and may not contain all information available regarding this patient. Last updated 18.[facility] Allergies Active Allergy Reactions Criticality Noted Date [...] Comments Blood Pressure 118/75 05/16/2021 1:30 PM ADMINISTRATIVE ASSISTANT FRONT DESK Pulse 90 05/16/2021 1:30 PM ADMINISTRATIVE ASSISTANT FRONT DESK Temperature 36.8 C (98.3 F) 05/16/2021 1:00 PM ADMINISTRATIVE ASSISTANT FRONT DESK Respiratory Rate 15 05/16/2021 1:30 PM ADMINISTRATIVE ASSISTANT FRONT DESK Oxygen Saturation 90% 05/16/2021 1:30 PM ADMINISTRATIVE ASSISTANT FRONT DESK Inhaled Oxygen Concentration 21% 10/15/2019 1 2:25 PM CDT Weight 66.7 kg (147 lb) 05/18/2021 12:34 PM ADMINISTRATIVE ASSISTANT FRONT DESK Height 152.4 cm (5') 05/16/2021 8:25 AM ADMINISTRATIVE ASSISTANT FRONT DESK Body Mass Index 28.71 05/16/2021 8:25 AM ADMINISTRATIVE ASSISTANT FRONT DESK Plan of Treatment Health Maintenance Due Date [...] 2006 MAMMOGRAM 03/09/2019 03/09/2017 COVID-19 VACCINE ( season) 2024 08/13/2020, 07/23/2020 SCREENING FOR DIABETES 05/11/2024 , 06/17/2020, 06/14/2020, Additional history exists DEPRESSION SCREENING 05/14/2024 COLONOSCOPY - COLON CA SCREENING 06/16/2024 06/16/2014 Colorectal Cancer Screening 06/16/2024 INFLUENZA VACCINE (Season Ended) 2025 03/08/2020, 02/25/2018 Respiratory Syncytial Virus (RSV) Vaccine Pt: or [...] this topic Medical Devices Implanted Type Area Educational Fundraising Director Device Identifier Shelf Expiration Date Model / Serial / Lot Orthofix M6 Artificial Cervical Disc Implanted:Qty: 1 on 10/15/2019 by Dolores Adamson MD at [facility] N/A: Spine Cervical 05/15/2024 CDL-637L / [id number] / [id number] Nushield 4 X 4cm Implanted:Qty: 1 on 06/16/2020 by Margaret De La Rosa MD at [facility] N/A: Back 09/07/2024 NO-1440 / / [id number] Description:Graft Tissue Head Radl 12mm 22mm Explor Thu Garcia Implanted:Qty: 1 on 05/16/2021 by Sourav Douglas MD at [facility] Left: Radius [employer] 05/30/2029 / / [id number] Stem Radl 26mm 7mm Explor Thu Garcia Implanted:Qty: 1 on 05/16/2021 by Sourav Douglas MD at [facility] Left: Radius [employer] 10/06/2030 / / [id number] Description:apart of total Procedures Procedure Name Priority Date/Time Associated Diagnosis Comments BASIC METABOLIC PANEL (CALCIUM TOTAL) Routine 05/11/2021 2:34 PM ADMINISTRATIVE ASSISTANT FRONT DESK Adjustment insomnia from Last 3 Months or Most Recently Relevant to Health Maintenance Results * BASIC METABOLIC PANEL (CALCIUM TOTAL) (05/11/2021 2:34 PM ADMINISTRATIVE ASSISTANT FRONT DESK) BUN 10 7 - 26 mg/dL 05/11/2021 3:19 PM [facility] Creatinine 0.61 0.56 - 0.96 mg/dL 05/11/2021 3:19 PM [facility] Sodium 137 136 - 145 mmol/L 05/11/2021 3:19 PM [facility] Potassium 3.9 3.5 - 4.5 mmol/L 05/11/2021 3:19 PM [facility] Chloride 102 98 - 107 mmol/L 05/11/2021 3:19 PM [facility] CO2 25 22 - 29 mmol/L 05/11/2021 3:19 PM [facility] Glucose 93 70 - 115 mg/dL 05/11/2021 3:19 PM [facility] Calcium 9.3 8.4 - 10.2 mg/dL 05/11/2021 3:19 PM [facility] Anion Gap 14 8 - 18 05/11/2021 3:19 PM [facility] BUN/Creatinine Ratio 16 7 - 23 05/11/2021 3:19 PM [facility] Osmolality Calculated 283 270 - 300 mOsm/kg 05/11/2021 3:19 PM [facility] eGFR by CKD-EPI >90 >=90 mL/min/1.7 3 m2 05/11/2021 3:19 PM [facility] Blood BLOOD SPECIMEN / Unknown Lab Venipuncture / Unknown 05/11/2021 2:34 PM ADMINISTRATIVE ASSISTANT FRONT DESK 05/11/2021 2:[address] [facility] Provider Unknown LAB - CHEMISTRY [facility] [address] [place] [address] [phone] from Last 3 Months or Most Recently Relevant to Health Maintenance Advance Directives * Full Code (Latest Code Status on File) Date Activated Date Inactivated Comments 06/16/2020 12:56 PM 06/17/2020 2:49 PM * Full Code Date Activated Date Inactivated Comments 06/12/2018 9:43 AM 06/12/2018 4:30 PM Care Teams Slitting Machine Operator Helper Relationship Specialty Start Date End Date Robert Ashraf MD [address] [place] [address] PCP - General 06/23/14
--- OUTSIDE RECORDS SUMMARY | 2024-08-19 10:21 | XMS_ITS | Clinical Summary ---
Author Organization [facility] Elaine lockhart Castillo Address [address] [place] [address] Care Team Providers Care Metal Mover Name Role Phone Robert Ashraf MD Primary Care Provider [phone] Allergies Active Allergy Reactions Criticality Noted Date [...] Encounters Date Type Department Care Team Description 08/19/2024 10:15 AM CDT Office Visit [facility] Oncology and Hematology - Vishnu [address] [place] [address] Miguel Gomez MD Erythrocytosis (Primary Dx) 08/12/2024 Orders Only [facility] Oncology and Hematology [facility] [address] [place] [address] Miguel Gomez MD 07/30/2024 External Device Data STL ABSTRACTION Provider, [...] 12.8 oz) 08/19/2024 9:54 AM CDT Height 152.4 cm (5') 01/04/2022 11:38 AM CDT Body Mass Index 25.94 01/04/2022 11:38 AM CDT Plan of Treatment Health Maintenance Due Date Last Done Comments Pre-Diabetes and Diabetes Screening 1955 DTAP/TDAP/TD VACCINES (1 - Tdap) 09/19/1975 PNEUMOCOCCAL VACCINE 50+ YEA RS (1 of 2 - PCV) 09/19/1975 FIT-DNA Q 3 years 2001 FIT/FOBT Q 1 year 2001 Flex Sig/CT Colonography Q 5 years 2001 Lung Cancer Screening 2006 ZOSTER VACCINE (1 of 2) 2006 INFLUENZA VACCINE (#1) 2023 [place] Preventative Visit/Annual Wellness Visit 05/14/2024 BREAST CANCER SCREENING 10/11/2024 10/12/19 24, 10/12/2023, 09/06/2022, Additional history exists COLORECTAL SCREENING 06/13/2029 06/13/2019 Colorectal Cancer Screening 06/13/2029 RSV VACCINE (60+ or ) (1 - 1-dose 75+ series) 09/19/2031 OSTEOPOROSIS SCREENING Completed 11/22/2020 Procedures Procedure Name Priority Date/Time Associated Diagnosis Comments CT CHEST W CONTRAST Routine 08/12/2024 1:19 PM CDT from Last 3 Months Results * CT CHEST W CONTRAST (08/12/2024 1:19 PM CDT) Anatomical Region Laterality Modality Chest Computed Tomogra phy Miguel Gomez MD CT ORDERABLES Final Result from Last 3 Months Insurance [place]ID [place] MEDICARE PART A AND [facility] [id number] Care Teams Metal Mover Relationship Specialty Start Date End Date Robert Ashraf MD [address] [place] [address] PCP - General Family Practice 12/16/20
--- OUTSIDE RECORDS SUMMARY | 2024-08-19 10:21 | XMS_ITS | Clinical Summary ---
Author Organization [facility] Address [address] [place] [address] Care Team Providers Care Financial Operations Consultant Name Role Phone Robert Ashraf MD Primary Care Provider [phone] Social History Tobacco Use Types Packs/Day Years Used Date Smoking Tobacco: Never Assessed Comments Unknown Sex and Gender Information Value Date Recorded Sex Assigned at Not on file Legal Sex Female 8:11 AM PEARL STRINGER Gender Identity Not on file Sexual Orientation [...] this topic Insurance MEDICARE MEDICAID Care Teams Financial Operations Consultant Relationship Specialty Start Date End Date Robert Ashraf MD [address] [address] PCP - General FAMILY PRACTICE 06/26/19
== END 2024-08-19 09:30 | disposition home or self-care (01) ==
LOC: ANHLAB 09:31
PROVIDERS: PCP Family Medicine; Visit Provider Internal Medicine Hematology & Oncology
DX: D75.1 Secondary polycythemia (principal)
CPT/HCPCS: 36415; 80047; 85025

== ENCOUNTER 2024-11-04 15:34 | Outpatient (CLI) | payer MEDICARE, MEDICAID, SELFPAY ==
--- NOTE | ~2024-11-04 | MM_ITS ---
EXAMINATION: MM screening ratna BI w tiana HISTORY: Screening mammogram TECHNIQUE: Craniocaudal and mediolateral oblique 3-D tomosynthesis images were obtained and synthetic 2-D images were generated. CAD analysis was submitted and interpreted. COMPARISON: 10/12/2023, 09/06/2022, 11/22/2020 BREAST PARENCHYMAL COMPOSITION:Not Dense. The breasts are almost entirely fatty FINDINGS: No suspicious mass, calcification, or architectural distortion are identified in either josh ast to suggest malignancy. There has been no suspicious interval change. IMPRESSION: No mammographic evidence of malignancy. Recommend routine screening mammography in one year. BI-RADS Category 1: Negative Reviewed, dictated and finalized at location .
== END 2024-11-04 15:35 | disposition home or self-care (01) ==
LOC: ANHIMG 15:34
PROVIDERS: PCP Family Medicine; Visit Provider Family Medicine
DX: Z12.31 Encounter for screening mammogram for malignant neoplasm of breast (principal)
CPT/HCPCS: 77063; 77067

== ENCOUNTER 2025-02-18 11:17 | Outpatient (CLI) | payer MEDICARE, MEDICAID, SELFPAY ==
[2025-02-18 11:30] LABS: Hematocrit 46.2 % (37.0-47.0); Hemoglobin 15.6 g/dL (12.0-15.0); Mean Corpuscular HGB Conc 33.8 g/dl (32-36); Mean Corpuscular Hemoglobin 30.4 pg (26-34); Mean Corpuscular Volume 89.9 fl (80-100); Platelet Count Result 390 k/mm3 (150-375); Red Blood Count 5.14 M/mm3 (4.2-5.4); White Blood Count 9.4 K/mm3 (4.5-10.0)
[2025-02-18 11:33] LABS: Blood Urea Nitrogen 9 mg/dL (8-26); Carbon Dioxide 29 mmol/L (22-30); Chloride 99 mmol/L (98-109); Estimated Glomerular Filt Rate > 60; Glucose 92 mg/dL (70-105); Ionized Calcium (POC) 1.13 mmol/L (1.11-1.31); Potassium 4.3 mmol/L (3.5-4.9); Sodium 135 mmol/L (138-146)
== END 2025-02-18 11:18 | disposition home or self-care (01) ==
LOC: ANHLAB 11:18
PROVIDERS: PCP Family Medicine; Visit Provider Internal Medicine Hematology & Oncology
DX: D75.1 Secondary polycythemia (principal)
CPT/HCPCS: 36415; 80047; 85027

== ENCOUNTER 2025-03-09 08:41 | Outpatient (CLI) | payer MEDICARE, MEDICAID, SELFPAY ==
--- NOTE | ~2025-03-09 | MR_ITS ---
EXAMINATION: MR lumbar spine wo con DATE: 03/09/2025 09:08 INDICATION: Chronic low back pain. Other symptoms and signs involving the musculoskeletal system. TECHNIQUE: Magnetic resonance imaging (MRI) of the lumbar spine was performed without intravenous contrast. Sequences included sagittal T2-weighted FSE, sagittal T2-weighted FS FSE, sagittal T1-weighted FSE, and axial T2-weighted FSE. COMPARISON: Lumbar spine MRI 03/26/2020 FINDINGS: There is 3 mm retrolisthesis of L2 on L3. There is mild chronic anterior wedging of T12 vertebral body. There is severely decreased disc at L2- L3, mildly decreased disc height at L3-L4, severely decreased disc height at L4- L5, and mildly decreased disc height at L5-S1. The distal spinal cord signal intensity is normal. The conus medullaris is at L1. The following disc levels are specifically discussed: L1-L2: The disc does not extend beyond the endplate margin. There is moderate bilateral facet joint osteoarthritis. There is no neural foraminal stenosis. There is no central canal stenosis. L2-L3: The disc is bulging with superimposed left subarticular zone extrusion. There is mild bilateral facet joint osteoarthritis. There is moderate right and mild left neural foraminal stenosis. There is mild central canal stenosis. L3-L4: The disc is bulging. There is severe right and mild left facet joint osteoarthritis. There is mild bilateral neural foraminal stenosis. There is mild central canal stenosis. There is posterior decompression. L4-L5: The disc is bulging and has an annular fissure. There is severe bilateral facet joint osteoarthritis. There is moderate right and severe left neural foraminal stenosis. There is mild central canal stenosis with posterior decompression. L5-S1: The disc is bulging and has an annular fissure. There is severe bilateral facet joint osteoarthritis. There is moderate right and mild left neural foraminal stenosis. There is mild central canal stenosis. IMPRESSION: 1. Severe lumbar spondylosis, worsened from 03/26/2020. Reviewed, dictated and finalized at location E.
== END 2025-03-09 08:42 | disposition home or self-care (01) ==
LOC: MICIMG 08:42
PROVIDERS: PCP Family Medicine; Visit Provider Physician Assistant Medical
DX: R29.898 Other symptoms and signs involving the musculoskeletal system (principal); M48.061 Spinal stenosis, lumbar region without neurogenic claudication; M47.26 Other spondylosis with radiculopathy, lumbar region
CPT/HCPCS: 72148

== ENCOUNTER 2025-05-06 10:31 | Emergency (ER) | payer MEDICARE, MEDICAID, SELFPAY ==
--- OUTSIDE RECORDS SUMMARY | 2025-05-06 10:34 | XMS_ITS | Encounter Summary ---
Author Organization [facility] Address [address] [place] [address] Care Team Providers Care Data Operations Leader Name Role Phone Robert Ashraf MD Primary Care Provider [phone] Encounter Details Date Type Department Care Team (Late st Contact Info) Description 05/05/2025 External Device Data [facility] ABSTRACTION Provider, Abstract NO ADDRESS ON FILE Social History Tobacco Use Types Packs/Day Years Used Date Smoking Tobacco: Every Day Cigarettes 1 60 Smokeless Tobacco: Never Alcohol Use Standard Drinks/Week Comments Yes 0 (1 standard drink = 0.6 oz pure alcohol) 2-3 times a week 6-12pack each day Comments No Sex and Gender Information Value Date Recorded Sex Assigned at Not on file Legal Sex Female 10:59 AM CDT Gender Identity Not on file Sexual Orientation Not on file documented as of this encounter Plan of Treatment Upcoming Encounters Date Type Department Care Team (Late st Contact Info) Description 01/11/2026 11:30 AM CDT Office Visit [facility] Oncology and Hematology - Vishnu [address] [place] [address] [address] [place] [address] [place] [address] [place] [address] [address] [place] [address] documented as of this encounter Visit Diagnoses Not on filedocumented in this encounter Care Teams Data Operations Leader Relationship Specialty Start Date End Date Robert Ashraf MD [address] [place] [address] PCP - General Family Practice 12/16/20 documented as of this encounter
--- OUTSIDE RECORDS SUMMARY | 2025-05-06 10:34 | XMS_ITS | Clinical Summary ---
Author Organization [facility] Address [address] [place] [address] Care Team Providers Care Timber Framer Name Role Phone Robert Ashraf MD Primary Care Provider [phone] Social History Tobacco Use Types Packs/Day Years Used Date Smoking Tobacco: Never Assessed Comments Unknown Sex and Gender Information Value Date Recorded Sex Assigned at Not on file Legal Sex Female 8:11 AM PLASMA SPECIALIST Gender Identity Not on file Sexual Orientation Not on file Plan of Treatment Health Maintenance Due Date Last Done Comments Colorectal Cancer Screening Colonoscopy (10 Years) 1956 Hepatitis C 1974 DTaP, Tdap and Td Vaccines ( 1 - Tdap) 09/19/1975 Mammogram Screening 1996 Pneumococcal Vaccine: 50+ Ye ars (1 of 1 - PCV) 2006 Zoster Vaccines (1 of 2) 2006 Annual Medicare Wellness Visit 2021 Dexa Scan (General) 2021 COVID-19 Vaccine (1 - 2024-2 6 season) 2025 Influenza Adult (#1) 2025 02/25/2018 RSV Immunization or 60+ Years (1 - 1-dose 75+ series) 09/19/2031 Hepatitis A Vaccines Aged Out No long er eligible based on patient's age to complete this topic Meningococcal B Vaccine Aged Out No l onger eligible based on patient's age to complete this topic Meningococcal Vaccine Aged Out No karis surya eligible based on patient's age to complete this topic RSV Immunizations Under 20 Months Aged Out No longer eligible based on patient's age to complete this topic Insurance MEDICARE MEDICAID Care Teams Timber Framer Relationship Specialty Start Date End Date Robert Ashraf MD [address] [address] PCP - General FAMILY PRACTICE 06/26/19
--- OUTSIDE RECORDS SUMMARY | 2025-05-06 10:34 | XMS_ITS | Encounter Summary ---
Author Organization [facility] Address [address] [place] [address] Care Team Providers Care Mark Up Designer Name Role Phone Robert Ashraf MD Primary Care Provider [phone] Encounter Details Date Type Department Care Team [...] Description 01/11/2026 11:30 AM CDT Office Visit [facility] Oncology and Hematology - Vishnu [address] [place] [address] [address] [place] [address] [place] [address] [place] [address] [address] [place] [address] documented as of this encounter Visit Diagnoses Not on filedocumented in this encounter Care Teams Mark Up Designer Relationship Specialty Start Date End Date Robert Ashraf MD [address] [place] [address] PCP - General Family Practice 12/16/20 documented as of this encounter
--- OUTSIDE RECORDS SUMMARY | 2025-05-06 10:34 | XMS_ITS | Patient Health Record ---
Author Organization [facility] Address [address] [place] [address] Care Team Providers Care Relationship Specialist Name Role Phone Bean Timothy Primary Care Provider Bonilla Franklin Unavailable Unavailable Reason For Referral No Information Medications Medication SIG (Take, Route, Fr equency, Duration) Notes Start Date End Date Status Vicodin 5/500mg Acute Active State (Matthew) Active Plan Of Treatment No Information Insurance Providers Payer Name Payer Address Payer Phone Subscriber Number Group Number Insured Name Patient Relationship to Insured Coverage Start Date Coverage End Date [employer] [id number] [place] [address] [id number] 3 Yamini Lerner Self - patient is the insured
--- OUTSIDE RECORDS SUMMARY | 2025-05-06 10:34 | XMS_ITS | Clinical Summary ---
Author Organization [facility] [employer] Address [address] [facility] [place] [address] Care Team Providers Care Cabinetmaker Maintenance Name Role Phone Robert Asrhaf MD Primary Care Provider [phone] Source Comments [facility] [employer],non-owned Affiliates and Associated Physician Practices is amultiple site organization consisting of ambulatory clinics and hospital sitesin [place], [place], [place] and [place]. This disclosure is being madepursuant to the Care Everywhere program and may not contain all information available regarding this patient. Last updated 18.[facility] [employer] Allergies Active Allergy Reactions Criticality Noted Date Comments Morphine Angioedema High 06/12/2018 Whole body and face swelled and itching, occurred while in hospital, med's given no artificial airway needed Medications * Be aware that medications may not be up to date on this document. Alwaysverify current medications with the patient. ANORO ELLIPTA 62.5-25 MCG/INH inhaler Inhale 1 [...] tablet 05/10/2021 Active Ibuprofen 100 MG Active HYDROcodone-lashonda taminophen (NORCO) 5-325 MG tablet Take 2 (two) [...] Elbow pain, left Acute post-operative pain Immunizations Immunization Administration Dates Next Due Covid Moderna primary [...] more drinks on one occasion? Never 05/16/2021 Comments No Sex and Gender Information Value Date Recorded Sex Assigned at Not on file Legal Sex Female 5:19 PM PINKED EDGE SEWING MACHINE OPERATOR Gender Identity Not on file Sexual Orientation Not on file Last Filed Vital Signs Vital Sign Reading Time Taken Comments Blood Pressure 118/75 05/16/2021 1:30 PM PINKED EDGE SEWING MACHINE OPERATOR Pulse 90 05/16/2021 1:30 PM PINKED EDGE SEWING MACHINE OPERATOR Temperature 36.8 C (98.3 F) 05/16/2021 1:00 PM PINKED EDGE SEWING MACHINE OPERATOR Respiratory Rate 15 05/16/2021 1:30 PM PINKED EDGE SEWING MACHINE OPERATOR Oxygen Saturation 90% 05/16/2021 1:30 PM PINKED EDGE SEWING MACHINE OPERATOR Inhaled Oxygen Concentration 21% 10/15/2019 1 2:25 PM CDT Weight 66.7 kg (147 lb) 05/18/2021 12:34 PM PINKED EDGE SEWING MACHINE OPERATOR Height 152.4 cm (5') 05/16/2021 8:25 AM PINKED EDGE SEWING MACHINE OPERATOR Body Mass Index 28.71 05/16/2021 8:25 AM PINKED EDGE SEWING MACHINE OPERATOR Plan of Treatment Health Maintenance Due Date Last Done Comments BONE DENSITY TESTING 1955 COLOGUARD (AGES 45-75) - COLON CA SCREENING [address] COLON[address]GRAPHY - COLON CA SCREENING 1955 FIT - COLON CA SCREENING 1955 FLEX SIG - COLON CA SCREENING 1955 HEPATITIS C SCREENING 09/14/1974 DTAP/TDAP/TD VACCINES (1 - Tdap) 09/19/1975 LUNG CANCER SCREENING 2006 PNEUMOCOCCAL VACCINE 50+ (1 of 1 - PCV) 2006 ZOSTER VACCINE (1 of 2) 2006 MAMMOGRAM 03/09/2019 03/09/2017 SCREENING FOR DIABETES 05/11/2024 , 06/17/2020, 06/14/2020, Additional history exists DEPRESSION SCREENING 05/14/2024 COLONOSCOPY - COLON CA SCREENING 06/16/2024 06/16/2014 Colorectal Cancer Screening 06/16/2024 COVID-19 VACCINE (3 - season) 2025 08/13/2020, 07/23/2020 INFLUENZA VACCINE (#1) 2025 03/08/2020, 2017 Respiratory Syncytial Virus (RSV) Vaccine Pt: or [...] this topic Medical Devices Implanted Type Area Warehouse Shift Supervisor Device Identifier Shelf Expiration Date Model / Serial / Lot Orthofix M6 Artificial Cervical Disc Implanted:Qty: 1 on 10/15/2019 by Dolores Adamson MD at [facility] N/A: Spine Cervical 05/15/2024 [id number] / [id number] / [id number] Nushield 4 X 4cm Implanted:Qty: 1 on 06/16/2020 by Margaret De La Rosa MD at [facility] N/A: Back 09/07/2024 [id number] / / [id number] Description:Graft Tissue Head Radl 12mm 22mm Explor Thu Garcia Implanted:Qty: 1 on 05/16/2021 by Sourav Douglas MD at [facility] Left: Radius [employer] 05/30/2029 / / [id number] Stem Radl 26mm 7mm Explor Thu Garcia Implanted:Qty: 1 on 05/16/2021 by Sourav Douglas MD at [facility] Left: Radius [employer] 10/06/2030 / / [id number] Description:apart of total Procedures Procedure Name Priority Date/Time Associated Diagnosis Comments BASIC METABOLIC PANEL (CALCIUM TOTAL) Routine 05/11/2021 2:34 PM PINKED EDGE SEWING MACHINE OPERATOR Adjustment insomnia from Last 3 Months or Most Recently Relevant to Health Maintenance Results * BASIC METABOLIC PANEL (CALCIUM TOTAL) (05/11/2021 2:34 PM PINKED EDGE SEWING MACHINE OPERATOR) BUN 10 7 - 26 mg/dL 05/11/2021 3:19 PM [facility] Creatinine 0.61 0.56 - 0.96 mg/dL 05/11/2021 3:19 PM [facility] Sodium 137 136 - 145 mmol/L 05/11/2021 3:19 PM [facility] Potassium 3.9 3.5 - 4.5 mmol/L 05/11/2021 3:19 PM [facility] Chloride 102 98 - 107 mmol/L 05/11/2021 3:19 PM [facility] CO2 25 22 - 29 mmol/L 05/11/2021 3:19 PM [facility] Glucose 93 70 - 115 mg/dL 05/11/2021 3:19 PM [facility] Calcium 9.3 8.4 - 10.2 mg/dL 05/11/2021 3:19 PM [facility] Anion Gap 14 8 - 18 05/11/2021 3:19 PM [facility] BUN/Creatinine Ratio 16 7 - 23 05/11/2021 3:19 PM [facility] Osmolality Calculated 283 270 - 300 mOsm/kg 05/11/2021 3:19 PM [facility] eGFR by CKD-EPI >90 >=90 mL/min/1.7 3 m2 05/11/2021 3:19 PM [facility] Blood BLOOD SPECIMEN / Unknown Lab Venipuncture / Unknown 05/11/2021 2:34 PM PINKED EDGE SEWING MACHINE OPERATOR 05/11/2021 2:54 PM [facility] us Provider Unknown LAB - CHEMISTRY ORDERABLES Tiffanie l Result Performing Organization Address City/State/[facility] Co de Phone Number [facility] [address] [place] [address], [facility] [phone] from Last 3 Months or Most Recently Relevant to Health Maintenance Insurance MEDICAID - [place] MEDICARE MEDICAID - OUT OF STATE MEDICARE Advance Directives * Full Code (Latest Code Status on File) Date Activated Date Inactivated Comments 06/16/2020 12:56 PM 06/17/2020 2:49 PM * Full Code Date Activated Date Inactivated Comments 06/12/2018 9:43 AM 06/12/2018 4:30 PM Care Teams Cabinetmaker Maintenance Relationship Specialty Start Date End Date Robert Ashraf MD [address] [place] [address] PCP - General 06/23/14
--- OUTSIDE RECORDS SUMMARY | 2025-05-06 10:34 | XMS_ITS | Clinical Summary ---
Author Organization [facility] Address [address] [place] [address] Care Team Providers Care Solar Sales Rep Name Role Phone Robert Ashraf MD Primary Care Provider [phone] Allergies Active Allergy Reactions Criticality Noted Date [...] Encounters Date Type Department Care Team Description 05/05/2025 External Device Data [facility] ABSTRACTION Provider, Abstract 05/05/2025 External Device Data [facility] ABSTRACTION Provider, Abstract 03/31/2025 External Device Data [facility] ABSTRACTION Provider, Abstract 03/11/2025 External Device Data [facility] ABSTRACTION Provider, Abstract 03/10/2025 External Device Data [facility] ABSTRACTION Provider, Abstract 03/04/2025 External Device Data [facility] ABSTRACTION Provider, Abstract 03/03/2025 External Device Data [facility] ABSTRACTION Provider, Abstract 02/18/2025 11:30 AM CDT Office Visit [facility] Oncology and Hematology - Vishnu [address] [address] Miguel Gomez MD Erythrocytosis (Primary Dx); Screening for lung cancer from Last 3 Months Family History Medical [...] Sign Reading Time Taken Comments Blood Pressure 153/90 02/18/2025 11:38 AM CDT Pulse 79 02/18/2025 11:35 AM CDT Temperature 36.7 C (98 F) 02/18/2025 11:35 AM CDT Respiratory Rate 16 02/18/2025 11:35 AM CDT Oxygen Saturation 93% 02/18/2025 11:35 AM CDT Inhaled Oxygen Concentration - - Weight 61.7 kg (136 lb 1.6 oz) 02/18/2025 11:35 AM CDT Height 152.4 cm (5') 01/04/2022 11:38 AM CDT Body Mass Index 26.58 01/04/2022 11:38 AM CDT Plan of Treatment Upcoming Encounters Date Type Department Care Team (Late st Contact Info) Description 01/11/2026 11:30 AM CDT Office Visit [facility] Oncology and Hematology - Vishnu [address] [facility] [address] [place] [address] Miguel Gomez MD [address] [facility] [address] [place] [address] Health Maintenance Due Date Last Done Comments Pre-Diabetes and Diabetes Screening 1955 DTAP/TDAP/TD VACCINES (1 - Tdap) 09/19/1975 PNEUMOCOCCAL VACCINE 50+ YEA RS (1 of 2 - PCV) 09/19/1975 FIT-DNA Q 3 years 2001 FIT/FOBT Q 1 year 2001 Flex Sig/CT Colonography Q 5 years 2001 Lung Cancer Screening 2006 ZOSTER VACCINE (1 of 2) 2006 BREAST CANCER SCREENING 10/11/2024 10/12/19 24, 10/12/2023, 09/06/2022, Additional history exists INFLUENZA VACCINE (#1) 2024 OSTEOPOROSIS SCREENING 11/22/2025 11/22/2020 COLORECTAL SCREENING 06/13/2029 06/13/2019 Colorectal Cancer Screening 06/13/2029 RSV VACCINE (60+ or ) (1 - 1-dose 75+ series) 09/19/2031 Insurance MEDICAID [place] UHC DUAL COMPLETE PPO [facility] [id number] Care Teams Solar Sales Rep Relationship Specialty Start Date End Date Robert Ashraf MD [address] [place] [address] PCP - General Family Practice 12/16/20
[2025-05-06 10:43] VITALS: BP 144/92; PULSE 94; RESP 17; TEMP 36.6; O2SAT 99
--- NOTE | 2025-05-06 12:52 | PC.NURSE ---
Pt called x2 for re vitalization and there was no answer. Pt did not notify delivery route driver of declining to be seen and was not seen exiting the ED.
== END 2025-05-06 17:56 | disposition left against medical advice (07) ==
LOC: ANHED 12:56
PROVIDERS: PCP Family Medicine
DX: R20.2 Paresthesia of skin (principal)
CPT/HCPCS: 99199